=== PATIENT | male | born 1960 ===

== ENCOUNTER 2020-11-05 17:15 | Inpatient (IN) | payer BC, SELFPAY ==
--- NOTE | ~2020-11-05 | CT_ITS ---
EXAMINATION: CT HEAD WITHOUT CONTRAST CLINICAL INFORMATION: Hypertension. COMPARISON: None TECHNIQUE: Contiguous axial imaging was performed from the skull base to vertex without intravenous administration of contrast. This CT examination was performed using dose optimization techniques as appropriate, variously including the following: *Automated exposure control *Adjustment of mA and/or kV according to patient size (this includes techniques or standardized protocols for targeted exams where dose is matched to indication/reason for exam; i.e. extremities or head) *Use of iterative reconstruction technique DLP: 690 mGy-cm FINDINGS: There is no evidence of acute intracranial hemorrhage or territorial infarction. No abnormal mass effect or midline shift is seen. Garcia to white matter differentiation is well preserved. No extra-axial fluid collections are identified. The ventricles are normal in size. There is no abnormal attenuation within the brain parenchyma. The osseous structures and soft tissues are normal. The mastoid air cells and visualized portions of the paranasal sinuses are well aerated. CT/CT head/brain wo con IMPRESSION: No acute intracranial process seen.
--- NOTE | ~2020-11-05 | CT_ITS ---
EXAMINATION: CT ABDOMEN AND PELVIS WITH CONTRAST CLINICAL INFORMATION: 60-year-old male with epigastric pain. COMPARISON: None TECHNIQUE: Multidetector volumetric images were obtained from the superior aspect of the liver through the pubic symphysis following administration 85 mL of Omnipaque 350 intravenous contrast. Sagittal and coronal reformatted images were obtained on the technologist's workstation. Today's examination is limited secondary to motion artifact. This CT examination was performed using dose optimization techniques as appropriate, variously including the following: *Automated exposure control *Adjustment of mA and/or kV according to patient size (this includes techniques or standardized protocols for targeted exams where dose is matched to indication/reason for exam; i.e. extremities or head) *Use of iterative reconstruction technique DLP: 343 mGy-cm FINDINGS: Visualized lung bases demonstrate mild dependent atelectasis. The liver is normal in size but demonstrates diffusely decreased attenuation. A few gallstones are present within an otherwise unremarkable gallbladder. The pancreas, spleen and adrenal glands are unremarkable. Symmetrically enhancing kidneys. There is a 3 cm exophytic cyst off the upper pole the left kidney. No renal calculi or hydronephrosis bilaterally. Visualized portion of the distal esophagus demonstrate mild circumferential mucosal thickening. Normal caliber loops of small and large bowel. Mild colonic diverticulosis without CT evidence to suggest active diverticulitis. Normal appendix. Normal caliber abdominal aorta which demonstrates only mild atherosclerotic disease. No retroperitoneal lymphadenopathy. The bladder is mildly distended but otherwise grossly unremarkable. The prostate gland is not enlarged. No gross free pelvic fluid. No inguinal lymphadenopathy. Small fat-containing left inguinal hernia. Mild diffuse degenerative changes of the spine. CT/CT abdomen pelvis w con IMPRESSION: 1. Today's examination is limited secondary to motion artifact. 2. Diffusely decreased liver attenuation. This is a nonspecific finding but most suggestive of hepatic steatosis. Correlation with liver enzymes recommended. Cholelithiasis. 3. 3 cm left renal cyst. 4. Mild circumferential mucosal thickening noted within visualized portions of the distal esophagus. This is a nonspecific finding. Clinical correlation recommended. 5. Mild colonic diverticulosis without CT evidence to suggest active diverticulitis.
--- NOTE | ~2020-11-05 | XR_ITS ---
EXAMINATION: XR CHEST CLINICAL INFORMATION: Tachycardia and hypertension COMPARISON: Chest 06/01/2017 TECHNIQUE: Frontal view of the chest was obtained. FINDINGS: No significant abnormality is noted involving the heart, lungs, mediastinum, bony thorax or soft tissues. XR/XR chest 1V IMPRESSION: Unremarkable chest exam. No change from 06/01/2017.
[2020-11-05 17:54] VITALS: BP 152/100; PULSE 130; RESP 18; TEMP 36.5; O2SAT 100; BMI 21.3
--- NOTE | 2020-11-05 18:02 | ECG_ITS ---
Test Reason : TACHYCARDIA Blood Pressure : / mmHG Vent. Rate : 133 BPM Atrial Rate : 129 BPM P-R Int : 130 ms QRS Dur : 094 ms QT Int : 366 ms P-R-T Axes : 202 052 200 degrees QTc Int : 544 ms Poor data quality Undetermined rhythm Possible Sinus tachycardia Abnormal ECG When compared with ECG of 17-JUN-2018 14:52, Poor data quality in current ECG precludes serial comparison Please repeat EKG Referred By: Generic ED Physician Electronically Signed By:CHINA BRANDT MD
[2020-11-05] MEDS: Labetalol HCL 100 MG TABLET PO (19:32)
[2020-11-05] MEDS: LORazepam 2 MG/ML VIAL IVPUSH (19:32)
[2020-11-05] MEDS: ondansetron HCL 4 MG/2 ML VIAL IVPUSH (19:35)
--- NOTE | 2020-11-05 19:45 | PC.NURSE ---
NOTIFIED IN DELAY IN LAB WORK DUE TO COMPUTER SYSTEM BEING DOWN.
[2020-11-05 20:00] VITALS: BP 146/78; PULSE 130; RESP 20; TEMP 36.3; O2SAT 98
--- NOTE | 2020-11-05 20:00 | ED_ITS ---
HPI - General Adult General Chief complaint: General Medical Stated complaint: headaches Time Seen by Provider: 11/05/20 19:19 Source: patient Mode of arrival: ambulatory Limitations: no limitations History of Present Illness HPI narrative: patient comes to emergency room complaining of a headache, high blood pressure. patient states that he takes alcohol every day, this morning he only had 1 beer, patient states that he usually takes between 2-6 beers. Patient denies chest pain, no palpitations. Related Data Home Medications Medication Instructions Recorded Confirmed Unobtainable 11/05/20 11/05/20 Allergies Allergy/AdvReac Type Severity Reaction Status Date / Time Sulfa (Sulfonamide Allergy Unknown RASH Unverified 01/25/20 17:10 Antibiotics) Review of Systems Review of Systems: Constitutional : No Weight loss, No Fever, No Chills, No Night Sweats, No Fatigue, No Malaise ENT/Mouth : No Hearing loss, No Ear Pain, No Nasal Congestion, No Sinus Pain, No Hoarseness, No sore throat, No Rhinorrhea, No Swallowing Difficulty Eyes: No Eye Pain, No Swelling, No Redness, No Foreign Body, No Discharge, No Vision Changes Cardiovascular : No Chest Pain, No SOB, No Dyspnea on Exertion, No Orthopnea, No Edema, No Palpitations Respiratory : No Cough, No Sputum, No Wheezing, No Smoke Exposure, No Dyspnea Gastrointestinal : No Nausea, No Vomiting, No Diarrhea, No Constipation, No abdominal Pain, No Hematochezia, No Melena Genitourinary : no irregular bleeding, No Dysuria, No Urinary Frequency, No Hematuria, No Urinary Incontinence, No Urgency, No Flank Pain, No Urinary Flow Changes, No Hesitancy Musculoskeletal : No joint pain, No Myalgias, No Joint Swelling Skin : No Skin Lesions, No rash Neuro : No Weakness, No Numbness, No Paresthesias, No Loss of Consciousness, No Dizziness, No Headache Psych : No Anxiety/Panic, No Depression, No SI/HI/AH/VH, No Social Issues, Heme/Lymph: No Bruising, No Bleeding,No Lymphadenopathy Endocrine : No Polyuria, No Polydipsia, No Temperature Intolerance [facility] Past Medical History Medical History (Updated 11/05/20 @ 22:08 by Gabriela Crane MD) High cholesterol HTN (hypertension) Social History Social History Alcohol intake: current Alcohol intake frequency: 3 or more drinks per day Alcohol type: beer, wine and hard liquor Patient Tobacco Use Status: Current everyday Tobacco user Smoked in Last 30 Days: Yes Use of substances other than those prescribed or required for medical reasons: Unknown Advance Directives: No Advance Directives Information Provided: No Physical Exam Vital Signs: Vital Signs: Last Vital Signs Temp 98.2 F 11/05/20 20:54 Pulse 87 11/05/20 22:20 Resp 16 11/05/20 22:20 BP 131/62 11/05/20 22:20 Pulse Ox 96 11/05/20 22:20 Body Mass Index 21.3 Course Course Course Narrative: Patient seems to be actively withdrawing from alcohol. Patient was started on phenobarb protocol, patient's potassium is 6.0, D50 and insulin was given and Kayexalate as well. No EKG changes. At this time, 950pm, patient is complaining of epigastric pain, given his history of alcohol abuse, will go ahead and scan his abdomen to rule out pancreatitis I discussed the patient with Dr. Saldana, patient is being admitted. Medical Decision Making Lab Data Result diagrams: 11/05/20 19:20 11/05/20 23:16 Labs: Lab Results 11/05/20 11/05/20 11/05/20 Range/Units 19:20 19:20 19:20 WBC 12.9 H (4.8-10.8) X10*3/uL RBC 4.00 L (4.60-5.80) X10*6/uL Hgb 13.8 L (14.0-18.0) g/dl Hct 42.9 (42-52) % MCV 107.3 H (80-98) fL MCH 34.5 H (27.0-33.0) pg MCHC 32.2 (31.0-36.0) g/dl RDW 12.8 (11.0-16.0) % Plt Count 175 (160-400) X10*3/uL MPV 11.5 (9.4-12.4) fL Immature Gran % (Auto) 0.4 (0.0-0.4) % Neut % (Auto) 87.6 H (45-73) % Lymph % (Auto) 5.4 L (20-40) % [place] % (Auto) 6.3 (2-11) % Eos % (Auto) 0.0 (0-4) % Baso % (Auto) 0.3 (0-2) % Lymph # (Auto) 0.7 L (1.2-4.9) X10*3/uL [place] # (Auto) 0.8 (0.1-1.2) X10*3/uL Eos # (Auto) 0.0 (0.0-0.4) X10*3/uL Baso # (Auto) 0.0 (0.0-0.2) X10*3/uL Abs Immat Gran (auto) 0.05 H (0.00-0.03) X10*3/uL Absolute Neuts (auto) 11.3 H (2.0-8.3) X10*3/uL Absolute Nucleated RBC 0.000 (0.0-0.012) X10*3/uL Nucleated RBC % (auto) 0.0 (0.0-0.2) /100WBC Hold Blue Top SEE NOTE Sodium 143 (135-145) mmol/L Potassium 6.0 H* (3.3-5.1) mmol/L Chloride 103 (96-108) mmol/L Carbon Dioxide 12 L (22-29) mmol/L Anion Gap 34 H (12-20) BUN 16 (9-16) mg/dL Creatinine 0.84 (0.5-1.4) mg/dL Estim Creat Clear Calc 78.2 Estimated GFR > 60 POC Glucose (60-115) mg/dL Random Glucose 137 H (60-115) mg/dL Calcium 9.7 (8.4-10.2) mg/dL Magnesium (1.6-2.6) mg/dL Total Bilirubin (0.0-1.0) mg/dL Direct Bilirubin (0.0-0.5) mg/dL AST (5-37) U/L ALT (0-40) U/L Alkaline Phosphatase (39-117) U/L Troponin I High Sens (<3.5-35.0) ng/L Total Protein (6.5-8.0) g/dL Albumin (3.5-5.0) g/dL Lipase (8-78) U/L Ethyl Alcohol mg/dL COVID-19 ([facility]) (Negative) COVID-19 Clin Com 11/05/20 11/05/20 11/05/20 Range/Units 19:20 19:20 19:20 WBC (4.8-10.8) X10*3/uL RBC (4.60-5.80) X10*6/uL Hgb (14.0-18.0) g/dl Hct (42-52) % MCV (80-98) fL MCH (27.0-33.0) pg MCHC (31.0-36.0) g/dl RDW (11.0-16.0) % Plt Count (160-400) X10*3/uL MPV (9.4-12.4) fL Immature Gran % (Auto) (0.0-0.4) % Neut % (Auto) (45-73) % Lymph % (Auto) (20-40) % [place] % (Auto) (2-11) % Eos % (Auto) (0-4) % Baso % (Auto) (0-2) % Lymph # (Auto) (1.2-4.9) X10*3/uL [place] # (Auto) (0.1-1.2) X10*3/uL Eos # (Auto) (0.0-0.4) X10*3/uL Baso # (Auto) (0.0-0.2) X10*3/uL Abs Immat Gran (auto) (0.00-0.03) X10*3/uL Absolute Neuts (auto) (2.0-8.3) X10*3/uL Absolute Nucleated RBC (0.0-0.012) X10*3/uL Nucleated RBC % (auto) (0.0-0.2) /100WBC Hold Blue Top Sodium (135-145) mmol/L Potassium (3.3-5.1) mmol/L Chloride (96-108) mmol/L Carbon Dioxide (22-29) mmol/L Anion Gap (12-20) BUN (9-16) mg/dL Creatinine (0.5-1.4) mg/dL Estim Creat Clear Calc Estimated GFR POC Glucose (60-115) mg/dL Random Glucose (60-115) mg/dL Calcium (8.4-10.2) mg/dL Magnesium (1.6-2.6) mg/dL Total Bilirubin (0.0-1.0) mg/dL Direct Bilirubin (0.0-0.5) mg/dL AST (5-37) U/L ALT (0-40) U/L Alkaline Phosphatase (39-117) U/L Troponin I High Sens 7.1 (<3.5-35.0) ng/L Total Protein (6.5-8.0) g/dL Albumin (3.5-5.0) g/dL Lipase (8-78) U/L Ethyl Alcohol < 10 mg/dL COVID-19 ([facility]) Negative (Negative) COVID-19 Clin Com See Note 11/05/20 11/05/20 11/05/20 Range/Units 22:06 23:16 23:16 WBC (4.8-10.8) X10*3/uL RBC (4.60-5.80) X10*6/uL Hgb (14.0-18.0) g/dl Hct (42-52) % MCV (80-98) fL MCH (27.0-33.0) pg MCHC (31.0-36.0) g/dl RDW (11.0-16.0) % Plt Count (160-400) X10*3/uL MPV (9.4-12.4) fL Immature Gran % (Auto) (0.0-0.4) % Neut % (Auto) (45-73) % Lymph % (Auto) (20-40) % [place] % (Auto) (2-11) % Eos % (Auto) (0-4) % Baso % (Auto) (0-2) % Lymph # (Auto) (1.2-4.9) X10*3/uL [place] # (Auto) (0.1-1.2) X10*3/uL Eos # (Auto) (0.0-0.4) X10*3/uL Baso # (Auto) (0.0-0.2) X10*3/uL Abs Immat Gran (auto) (0.00-0.03) X10*3/uL Absolute Neuts (auto) (2.0-8.3) X10*3/uL Absolute Nucleated RBC (0.0-0.012) X10*3/uL Nucleated RBC % (auto) (0.0-0.2) /100WBC Hold Blue Top Sodium 139 (135-145) mmol/L Potassium 4.3 D (3.3-5.1) mmol/L Chloride 107 (96-108) mmol/L Carbon Dioxide 16 L (22-29) mmol/L Anion Gap 20 (12-20) BUN 14 (9-16) mg/dL Creatinine 0.80 (0.5-1.4) mg/dL Estim Creat Clear Calc 82.1 Estimated GFR > 60 POC Glucose 168 H (60-115) mg/dL Random Glucose 242 H D (60-115) mg/dL Calcium 7.9 L D (8.4-10.2) mg/dL Magnesium 1.5 L (1.6-2.6) mg/dL Total Bilirubin 0.9 (0.0-1.0) mg/dL Direct Bilirubin 0.4 (0.0-0.5) mg/dL AST 82 H (5-37) U/L ALT 48 H (0-40) U/L Alkaline Phosphatase 59 (39-117) U/L Troponin I High Sens 18.1 D (<3.5-35.0) ng/L Total Protein 6.6 (6.5-8.0) g/dL Albumin 3.9 (3.5-5.0) g/dL Lipase 34 (8-78) U/L Ethyl Alcohol mg/dL COVID-19 ([facility]) (Negative) COVID-19 Clin Com Imaging Data CT scan - abdomen: Radiologist's impression: FINDINGS: Visualized lung bases demonstrate mild dependent atelectasis. The liver is normal in size but demonstrates diffusely decreased attenuation. A few gallstones are present within an otherwise unremarkable gallbladder. The pancreas, spleen and adrenal glands are unremarkable. Symmetrically enhancing kidneys. There is a 3 cm exophytic cyst off the upper pole the left kidney. No renal calculi or hydronephrosis bilaterally. Visualized portion of the distal esophagus demonstrate mild circumferential mucosal thickening. Normal caliber loops of small and large bowel. Mild colonic diverticulosis without CT evidence to suggest active diverticulitis. Normal appendix. Normal caliber abdominal aorta which demonstrates only mild atherosclerotic disease. No retroperitoneal lymphadenopathy. The bladder is mildly distended but otherwise grossly unremarkable. The prostate gland is not enlarged. No gross free pelvic fluid. No inguinal lymphadenopathy. Small fat-containing left inguinal hernia. Mild diffuse degenerative changes of the spine. CT/CT abdomen pelvis w con IMPRESSION: 1. Today's examination is limited secondary to motion artifact. 2. Diffusely decreased liver attenuation. This is a nonspecific finding but most suggestive of hepatic steatosis. Correlation with liver enzymes recommended. Cholelithiasis. 3. 3 cm left renal cyst. 4. Mild circumferential mucosal thickening noted within visualized portions of the distal esophagus. This is a nonspecific finding. Clinical correlation recommended. 5. Mild colonic diverticulosis without CT evidence to suggest active diverticulitis. ECG Data Attestation: I personally reviewed and interpreted this ECG as follows: ( Sinus tachycardia, heart rate 131, no ST segment depression or elevation, no T-wave inversion, QTC 425) Discharge Plan Discharge Clinical Impression: Alcohol withdrawal Qualifiers: Complication of substance-induced condition: uncomplicated Qualified Code(s): F10.230 - Alcohol dependence with withdrawal, uncomplicated Patient Disposition: Admitted As Inpatient
--- NOTE | 2020-11-05 20:01 | ECG_ITS ---
Test Reason : REPEAT/TACHY Blood Pressure : / mmHG Vent. Rate : 131 BPM Atrial Rate : 131 BPM P-R Int : 136 ms QRS Dur : 078 ms QT Int : 288 ms P-R-T Axes : 042 029 076 degrees QTc Int : 425 ms Sinus tachycardia Otherwise normal ECG When compared with ECG of 05-NOV-2020 18:14, Poor data quality in prior EKG prevents proper comparison Referred By: Gabriela Crane Electronically Signed By:CHINA BRANDT MD
[2020-11-05 20:12] LABS: MANUAL DIFF FLAG NO
[2020-11-05 20:15] LABS: Basophils Percent Auto 0.3 % (0-2); Hematocrit 42.9 % (42-52); Hemoglobin 13.8 g/dl (14.0-18.0); Imm Gran Abs Auto 0.05 X10*3/uL (0.00-0.03); Imm Gran Pct Auto 0.4 % (0.0-0.4); Lymphocytes Absolute Auto 0.7 X10*3/uL (1.2-4.9); Lymphocytes Percent Auto 5.4 % (20-40); Mean Corpuscular HGB Conc 32.2 g/dl (31.0-36.0); Mean Corpuscular Hemoglobin 34.5 pg (27.0-33.0); Mean Corpuscular Volume 107.3 fL (80-98); Mean Platelet Volume 11.5 fL (9.4-12.4); Monocytes Absolute Auto 0.8 X10*3/uL (0.1-1.2); Monocytes Percent Auto 6.3 % (2-11); Neutrophils Absolute Auto 11.3 X10*3/uL (2.0-8.3); Neutrophils Percent Auto 87.6 % (45-73); Platelet Count 175 X10*3/uL (160-400); Red Cell Distribution Width 12.8 % (11.0-16.0); White Blood Count 12.9 X10*3/uL (4.8-10.8)
[2020-11-05 20:36] LABS: Ethanol < 10 mg/dL
[2020-11-05 20:37] LABS: COVID-19 Test Negative (Negative); IDNOW Serial# 9DD0AD1C
[2020-11-05 20:45] LABS: Troponin-I High Sensitivity 7.1 ng/L (<3.5-35.0)
[2020-11-05 20:54] VITALS: BP 123/74; PULSE 131; RESP 20; TEMP 36.8; O2SAT 100
--- NOTE | 2020-11-05 20:55 | PC.NURSE ---
PRIYANKA MARTÍNEZ AWARE OF PATIENT HIGH HEART RATE .
[2020-11-05 21:08] LABS: Anion Gap 34 (12-20); Blood Urea Nitrogen 16 mg/dL (9-16); Calcium 9.7 mg/dL (8.4-10.2); Carbon Dioxide 12 mmol/L (22-29); Chloride 103 mmol/L (96-108); Creatinine Clr Calc Pharmacy 78.2; Estimated Glomerular Filt Rate > 60; Glucose Random 137 mg/dL (60-115); Sodium 143 mmol/L (135-145)
[2020-11-05] MEDS: Sodium Polystyrene Sulfon/Sorb 15 GM/60 ML ORAL.SUSP 30 GM PO (21:50)
[2020-11-05] MEDS: iohexoL 350 MG/ML 100 ML INFUS..BTL IV (22:00)
[2020-11-05 22:10] LABS: Glucose, Whole Blood 168 mg/dL (60-115)
--- NOTE | 2020-11-05 22:10 | PC.NURSE ---
confirming with provider that patient is to have labs drawn after medication administration. primary rn aware
[2020-11-05] MEDS: 0.9 % Sodium Chloride 1,000 ML 999 ML IVCONT (22:12)
[2020-11-05] MEDS: Insulin Regular, Human 100 UNIT/ML 3 ML VIAL 10 UNIT IVPUSH (22:12)
[2020-11-05] MEDS: PHENobarbitaL sodium 130 MG/ML VIAL 256 MG IM (22:17)
[2020-11-05] MEDS: Thiamine HCL 200 MG in 0.9 % Sodium Chloride 100 ML 204 MG IV (22:19)
[2020-11-05 22:20] VITALS: BP 131/62; PULSE 87; RESP 16; O2SAT 96
[2020-11-05 23:52] LABS: Anion Gap 20 (12-20); Blood Urea Nitrogen 14 mg/dL (9-16); Calcium 7.9 mg/dL (8.4-10.2); Carbon Dioxide 16 mmol/L (22-29); Chloride 107 mmol/L (96-108); Creatinine Clr Calc Pharmacy 82.1; Estimated Glomerular Filt Rate > 60; Glucose Random 242 mg/dL (60-115); Lipase 34 U/L (8-78); Magnesium 1.5 mg/dL (1.6-2.6); Potassium 4.3 mmol/L (3.3-5.1); Sodium 139 mmol/L (135-145); Troponin-I High Sensitivity 18.1 ng/L (<3.5-35.0)
[2020-11-06] VITALS (8 sets, daily range): BP systolic 109–136; BP diastolic 66–80; PULSE 68–104; RESP 18–20; TEMP 36.4–37.2; O2SAT 95–99
[2020-11-06] MEDS: PHENobarbitaL sodium 130 MG/ML VIAL 191 MG IM ×2 (01:01→03:59)
[2020-11-06] MEDS: Heparin Sodium,Porcine 5,000 UNIT/ML VIAL 5000 UNIT SUBCUT ×3 (01:01→22:12)
[2020-11-06 01:37] LABS: Alanine Aminotransferase 48 U/L (0-40); Albumin Level 3.9 g/dL (3.5-5.0); Alkaline Phosphatase 59 U/L (39-117); Aspartate Amino Transferase 82 U/L (5-37); Bilirubin Direct 0.4 mg/dL (0.0-0.5); Bilirubin Total 0.9 mg/dL (0.0-1.0); Total Protein 6.6 g/dL (6.5-8.0)
[2020-11-06 03:34] LABS: Glucose Urine UA >=1000 MG/DL (NEG); Leukocyte Esterase Urine NEG (NEG); Nitrite Urine NEG (NEG); Urine Blood TRACE (NEG); Urine Ketones 40 MG/DL (NEG); Urine Protein NEG (NEG-TRACE)
[2020-11-06 03:36] LABS: Appearance Urine CLEAR; Color Urine YELLOW
--- NOTE | 2020-11-06 03:38 | PC.NURSE ---
REPORT FROM MAURICIO MATHEW AT 03:00
[2020-11-06 03:41] LABS: Bacteria Urine TRACE /LPF; Squamous Epithelial Cell Urine TRACE /LPF
--- NOTE | 2020-11-06 04:14 | PC.NURSE ---
PT AMBULATORY TO BATHROOM, UNSTEADY GAIT WITH ASSIST OF ONE. PT HAD LIQUID BROWN/YELLOW DIARRHEA.
--- NOTE | 2020-11-06 05:50 | P.HPHOSP_ITS ---
History of Present Illness Date of Service: 11/05/20 Chief Complaint: abdominal pain 60-year-old male with past medical history of hypertension, hyperlipidemia, alcohol abuse who presents to the hospital with complaints of abdominal pain. Patient reports the abdominal pain is around the stomach, nonradiating, not associated with any fever or chills, no nausea or vomiting, patient reports using alcohol daily about 4-6 beers a day, last drink was this morning he had 1 beer. Patient reports that he has never had withdrawal symptoms and no withdrawal seizure. Vitals on arrival are significant for temp of 97.7?, heart rate of 130, respiratory rate of 18, blood pressure of 152/100, satting 100% on room air Labs are significant for WBC count of 12.9, hemoglobin of 13.8, magnesium of 1.5, AST of 82, ALT of 48, UA negative. Abdominal CT shows diffusely decreased liver attenuation possibly secondary to hepatic steatosis, renal cyst, mild circumferential mucosal thickening noted within the visualized portion of the distal esophagus. no pancreatitis, lipase negative Unremarkable chest x-ray patient will be admitted for alcohol abuse with withdrawal past medical history as below and confirmed with patient Review of Systems Review of Systems: Yes all other systems are reviewed and are negative [facility] Medical History (Updated 11/06/20 @ 05:55 by Daniel Saldana MD) Alcohol abuse High cholesterol HTN (hypertension) Social History Alcohol intake: current Alcohol intake frequency: 3 or more drinks per day Alcohol type: beer, wine and hard liquor Patient Tobacco Use Status: Current everyday Tobacco user Smoked in Last 30 Days: Yes Use of substances other than those prescribed or required for medical reasons: Unknown Advance Directives: No Advance Directives Information Provided: No Meds Allergies Allergy/AdvReac Type Severity Reaction Status Date / Time Sulfa (Sulfonamide Allergy Unknown RASH Unverified 01/25/20 17:10 Antibiotics) Active Medications: Current Medications Generic Name Dose Route Start Last Admin Trade Name Freq PRN Reason Stop Dose Admin Acetaminophen 650 mg 11/06/20 00:52 Acetaminophen 325 Mg Tablet PO Q6H PRN Pain, Mild (Pain Scale 1-3) Docusate Sodium 100 mg 11/06/20 00:52 Docusate Sodium 100 Mg Capsule PO DAILY PRN Constipation Folic Acid 1 mg 11/06/20 09:00 Folic Acid 1 Mg Tablet PO DAILY [facility] Heparin Sodium (Porcine) 5,000 unit 11/06/20 09:00 Heparin Sodium,Porcine 5,000 Unit/Ml Vial SUBCUT BID [facility] Medication 1 each 11/06/20 09:00 No Benzodiazepines MISCELLANE DAILY [facility] Ondansetron HCl 4 mg 11/06/20 00:52 Ondansetron Hcl 4 Mg/2 Ml Vial IVPUSH Q8H PRN Nausea and Vomiting Phenobarbital 45 mg 11/06/20 09:00 Phenobarbital 15 Mg Tablet PO 11/07/20 21:01 BID [facility] Phenobarbital 15 mg 11/08/20 09:00 Phenobarbital 15 Mg Tablet PO 11/09/20 21:01 BID [facility] Phenobarbital 15 mg 11/10/20 09:00 Phenobarbital 15 Mg Tablet PO 11/11/20 09:01 DAILY [facility] Sodium Chloride 3 ml 11/06/20 08:00 0.9 % Sodium Chloride Flush 3 Ml Syringe IVFLUSH QSHIFT [facility] Thiamine HCl 100 mg 11/06/20 09:00 Thiamine Hcl 100 Mg Tablet PO DAILY [facility] Home Medications Medication Instructions Recorded Confirmed Last Taken Type Unobtainable 11/05/20 11/05/20 Unknown History Physical Exam Vital Signs and Narrative: Vital Signs: Last Vital Signs Temp 98.2 F 11/05/20 20:54 Pulse 104 H 11/06/20 03:23 Resp 19 11/06/20 03:23 BP 120/79 11/06/20 03:23 Pulse Ox 95 11/06/20 03:23 Body Mass Index 21.3 Const: General: cooperative and no acute distress Orientation/consciousness: patient oriented x3 Eyes: General: appearance normal, both eyes and all related structures Resp: Effort & Inspection: normal respiratory effort and able to speak in complete sentences Cardio: Rate: regular rate Rhythm: regular rhythm GI: Palpation (GI): Soft to palpation Auscultation: normal bowel sounds Skin: General skin exam: no rashes or lesions noted Neuro: General: patient oriented x3 Cognition (Neuro): normal cognition Extrem: General: Yes normal to inspection and Yes no pedal edema Results Labs CBC and Chem 7: 11/05/20 19:20 11/05/20 23:16 Labs: Laboratory Results - last 24 hr 11/05/20 11/05/20 11/05/20 19:20 19:20 19:20 MCV 107.3 H MCH 34.5 H MCHC 32.2 RDW 12.8 Plt Count 175 MPV 11.5 Immature Gran % (Auto) 0.4 Neut % (Auto) 87.6 H Lymph % (Auto) 5.4 L White % (Auto) 6.3 Eos % (Auto) 0.0 Baso % (Auto) 0.3 Lymph # (Auto) 0.7 L White # (Auto) 0.8 Eos # (Auto) 0.0 Baso # (Auto) 0.0 Abs Immat Gran (auto) 0.05 H Absolute Neuts (auto) 11.3 H Absolute Nucleated RBC 0.000 Nucleated RBC % (auto) 0.0 Hold Blue Top SEE NOTE Anion Gap 34 H Estim Creat Clear Calc 78.2 Estimated GFR > 60 POC Glucose Random Glucose 137 H Calcium 9.7 Magnesium Total Bilirubin Direct Bilirubin AST ALT Alkaline Phosphatase Troponin I High Sens Total Protein Albumin Lipase Urine Color Urine Appearance Urine pH Ur Specific [place] Urine Protein Urine Glucose (UA) Urine Ketones Urine Blood Urine Nitrite Ur Leukocyte Esterase Urine RBC Urine WBC Ur Squamous Epith Cells Urine Bacteria Ethyl Alcohol COVID-19 (SUBHA) COVID-InfoReach 11/05/20 11/05/20 11/05/20 19:20 19:20 19:20 MCV MCH MCHC RDW Plt Count MPV Immature Gran % (Auto) Neut % (Auto) Lymph % (Auto) White % (Auto) Eos % (Auto) Baso % (Auto) Lymph # (Auto) White # (Auto) Eos # (Auto) Baso # (Auto) Abs Immat Gran (auto) Absolute Neuts (auto) Absolute Nucleated RBC Nucleated RBC % (auto) Hold Blue Top Anion Gap Estim Creat Clear Calc Estimated GFR POC Glucose Random Glucose Calcium Magnesium Total Bilirubin Direct Bilirubin AST ALT Alkaline Phosphatase Troponin I High Sens 7.1 Total Protein Albumin Lipase Urine Color Urine Appearance Urine pH Ur Specific [place] Urine Protein Urine Glucose (UA) Urine Ketones Urine Blood Urine Nitrite Ur Leukocyte Esterase Urine RBC Urine WBC Ur Squamous Epith Cells Urine Bacteria Ethyl Alcohol < 10 COVID-19 (SUBHA) Negative COVID-19 Nosopharm Com See Note 11/05/20 11/05/20 11/05/20 22:06 23:16 23:16 MCV MCH MCHC RDW Plt Count MPV Immature Gran % (Auto) Neut % (Auto) Lymph % (Auto) White % (Auto) Eos % (Auto) Baso % (Auto) Lymph # (Auto) White # (Auto) Eos # (Auto) Baso # (Auto) Abs Immat Gran (auto) Absolute Neuts (auto) Absolute Nucleated RBC Nucleated RBC % (auto) Hold Blue Top Anion Gap 20 Estim Creat Clear Calc 82.1 Estimated GFR > 60 POC Glucose 168 H Random Glucose 242 H D Calcium 7.9 L D Magnesium 1.5 L Total Bilirubin 0.9 Direct Bilirubin 0.4 AST 82 H ALT 48 H Alkaline Phosphatase 59 Troponin I High Sens 18.1 D Total Protein 6.6 Albumin 3.9 Lipase 34 Urine Color Urine Appearance Urine pH Ur Specific [place] Urine Protein Urine Glucose (UA) Urine Ketones Urine Blood Urine Nitrite Ur Leukocyte Esterase Urine RBC Urine WBC Ur Squamous Epith Cells Urine Bacteria Ethyl Alcohol COVID-19 (SUBHA) COVID-19 Nosopharm Com 11/06/20 03:28 MCV MCH MCHC RDW Plt Count MPV Immature Gran % (Auto) Neut % (Auto) Lymph % (Auto) White % (Auto) Eos % (Auto) Baso % (Auto) Lymph # (Auto) White # (Auto) Eos # (Auto) Baso # (Auto) Abs Immat Gran (auto) Absolute Neuts (auto) Absolute Nucleated RBC Nucleated RBC % (auto) Hold Blue Top Anion Gap Estim Creat Clear Calc Estimated GFR POC Glucose Random Glucose Calcium Magnesium Total Bilirubin Direct Bilirubin AST ALT Alkaline Phosphatase Troponin I High Sens Total Protein Albumin Lipase Urine Color YELLOW Urine Appearance CLEAR Urine pH 6.0 Ur Specific [place] 1.020 Urine Protein NEG Urine Glucose (UA) >=1000 H Urine Ketones 40 Urine Blood TRACE Urine Nitrite NEG Ur Leukocyte Esterase NEG Urine RBC 1-4 Urine WBC 1-4 Ur Squamous Epith Cells TRACE Urine Bacteria TRACE Ethyl Alcohol COVID-19 (SUBHA) COVID-19 Clin Com Imaging Radiologist's Impressions: Impressions Chest X-Ray 11/05/20 18:02 IMPRESSION: Unremarkable chest exam. No change from 06/01/2017. Head CT 11/05/20 19:35 IMPRESSION: No acute intracranial process seen. Abdomen/Pelvis CT 11/05/20 21:46 IMPRESSION: 1. Today's examination is limited secondary to motion artifact. 2. Diffusely decreased liver attenuation. This is a nonspecific finding but most suggestive of hepatic steatosis. Correlation with liver enzymes recommended. Cholelithiasis. 3. 3 cm left renal cyst. 4. Mild circumferential mucosal thickening noted within visualized portions of the distal esophagus. This is a nonspecific finding. Clinical correlation recommended. 5. Mild colonic diverticulosis without CT evidence to suggest active diverticulitis. Assessment and Plan (1) Alcohol abuse with withdrawal: Status: Acute (2) Abdominal pain: Status: Acute (3) Transaminitis: Status: Acute 60-year-old male with past medical history of alcohol abuse presents to the hospital with abdominal pain as well as alcohol withdrawal # abdominal pain - no discernible cause - CT abdomen negative - possibly secondary to esophagitis as CT abdomen showed thickening around the lower esophagus - start him on Prilosec 40 b.i.d. - follow symptoms # alcohol abuse with withdrawal - was started on phenobarb protocol by ED physicianas patient was actively withdrawn while in the ED - thiamine and folic acid # history of hypertension? - denies taking any medications - stable - monitor # Transaminitis - secondary to alcohol abuse - mild - follow LFT prior to discharge DVT prophylaxis: heparin subQ Quality Stroke Does the patient have a stroke diagnosis?: No VTE Prior VTE?: No VTE Risk Level:: Medical - moderate - high VTE Device Contraindication: Treatment Not Indicated VTE Drug Contraindication: N/A - Med Ordered
[2020-11-06] MEDS: Omeprazole 40 MG CAPSULE.DR PO ×2 (06:37→17:44)
[2020-11-06] MEDS: 0.9 % Sodium Chloride Flush 3 ML SYRINGE IVFLUSH ×3 (07:10→22:16)
--- NOTE | 2020-11-06 08:09 | PHA.MEDREC ---
Pharmacy Consult ? Medication Reconciliation Pharmacy has completed the medication reconciliation. Patient reports that he takes no medications at home. Report his pharmacy is [facility] in the [facility] where he works. Called pharmacy and there is no filled history Amna Michele, FranD
[2020-11-06] MEDS: Thiamine HCL 100 MG TABLET PO (09:04)
[2020-11-06] MEDS: Folic Acid 1 MG TABLET PO (09:04)
[2020-11-06] MEDS: PHENobarbitaL 15 MG TABLET 45 MG PO ×2 (09:04→22:12)
--- NOTE | 2020-11-06 10:52 | MHC.CM.PN ---
Attempted to meet with patient in regards to discharge planning. Patient currently sleeping. No family present. Will attempt to meet again. Continue to monitor for d/c needs.
[2020-11-07 03:28] VITALS: BP 158/85; PULSE 64; RESP 18; TEMP 36.6; O2SAT 97
[2020-11-07] MEDS: Omeprazole 40 MG CAPSULE.DR PO ×2 (05:47→16:49)
[2020-11-07 06:53] LABS: MANUAL DIFF FLAG NO
[2020-11-07 07:05] LABS: Basophils Percent Auto 0.7 % (0-2); Eosinophils Absolute Auto 0.1 X10*3/uL (0.0-0.4); Hematocrit 35.5 % (42-52); Hemoglobin 12.3 g/dl (14.0-18.0); Imm Gran Abs Auto 0.02 X10*3/uL (0.00-0.03); Imm Gran Pct Auto 0.3 % (0.0-0.4); Lymphocytes Absolute Auto 1.3 X10*3/uL (1.2-4.9); Mean Corpuscular HGB Conc 34.6 g/dl (31.0-36.0); Mean Corpuscular Hemoglobin 34.6 pg (27.0-33.0); Mean Corpuscular Volume 99.7 fL (80-98); Mean Platelet Volume 11.4 fL (9.4-12.4); Monocytes Absolute Auto 0.6 X10*3/uL (0.1-1.2); Monocytes Percent Auto 9.6 % (2-11); Neutrophils Absolute Auto 3.8 X10*3/uL (2.0-8.3); Neutrophils Percent Auto 66.4 % (45-73); Platelet Count 134 X10*3/uL (160-400); Red Blood Count 3.56 X10*6/uL (4.60-5.80); Red Cell Distribution Width 12.1 % (11.0-16.0); White Blood Count 5.7 X10*3/uL (4.8-10.8)
[2020-11-07 07:38] VITALS: BP 145/85; PULSE 70; RESP 17; TEMP 37.6; O2SAT 99
[2020-11-07 07:38] LABS: Anion Gap 12 (12-20); Blood Urea Nitrogen 8 mg/dL (9-16); Calcium 8.1 mg/dL (8.4-10.2); Carbon Dioxide 30 mmol/L (22-29); Chloride 101 mmol/L (96-108); Creatinine Clr Calc Pharmacy 107.6; Estimated Glomerular Filt Rate > 60; Glucose Random 94 mg/dL (60-115); Potassium 3.1 mmol/L (3.3-5.1); Sodium 140 mmol/L (135-145)
[2020-11-07] MEDS: Folic Acid 1 MG TABLET PO (08:33)
[2020-11-07] MEDS: PHENobarbitaL 15 MG TABLET 45 MG PO ×2 (08:33→20:28)
[2020-11-07] MEDS: 0.9 % Sodium Chloride Flush 3 ML SYRINGE IVFLUSH ×3 (08:34→20:28)
[2020-11-07] MEDS: Thiamine HCL 100 MG TABLET PO (08:34)
[2020-11-07] MEDS: Heparin Sodium,Porcine 5,000 UNIT/ML VIAL 5000 UNIT SUBCUT ×2 (08:34→20:28)
[2020-11-07 08:50] LABS: Alanine Aminotransferase 42 U/L (0-40); Albumin Level 3.6 g/dL (3.5-5.0); Alkaline Phosphatase 54 U/L (39-117); Aspartate Amino Transferase 71 U/L (5-37); Bilirubin Direct 0.7 mg/dL (0.0-0.5); Bilirubin Total 1.7 mg/dL (0.0-1.0); Magnesium 1.7 mg/dL (1.6-2.6); Total Protein 5.9 g/dL (6.5-8.0)
[2020-11-07] MEDS: Potassium Chloride Packet 20 MEQ PACKET 40 MEQ PO (09:59)
--- NOTE | 2020-11-07 10:17 | MHC.CM.PN ---
PATIENT LIVES ALONE. HE SUES NO DME OR VNA SERVICES. HE HAS BEEN WORKING AT THE SAME PLACE FOR 19 YEARS AND IS HOPING TO BE ABLE TO RETURN TO WORK BY THIS WEDNESDAY (11/10/20) PATIENT WILL NEED A RETURN TO WORK NOTE, INDICATING THE DAYS HE HAS BEEN HERE. PATIENT SHARED THAT HIS ONLY SON THREE YEARS AGO, AND HIS WHILE WITH HIS DAUGHTER. HE IS AWARE THAT A CARE TEAM CONSULT WILL BE PLACED AND IS AGREEABLE. CASE MANAGEMENT FOLLOWING.
--- NOTE | 2020-11-07 10:59 | HO.PM.IMPN ---
Subjective Subjective Date of Service: 11/07/20 Interval History: seen and examined this AM feels better reports some epigastric pain after vomiting yeterday, but denies chronic pain denies any weight loss or dysphagia ROS General - no fevers or chills Cardiovascular - no chest pain Respiratory - no shortness of breath or cough Abdominal- no abdominal pain, nausea, vomiting, diarrhea Physical Exam Vital Signs: Vital Signs: Last Vital Signs Temp 99.7 F 11/07/20 07:38 Pulse 70 11/07/20 07:38 Resp 17 11/07/20 07:38 BP 145/85 H 11/07/20 07:38 Pulse Ox 99 11/07/20 07:38 Body Mass Index 21.3 Const: Other: General - no acute distress, appears comfortable Cardiovascular - regular rate and rhythm, S1-S2 Lungs - normal respiratory effort, clear to auscultation bilaterally, no wheezing Abdomen - soft, nontender, no rebound or guarding Extremities - no edema bilaterally Neuro - awake and alert, no focal deficits Objective Data Current Medications Generic Name Dose Route Start Last Admin Trade Name Bruceq PRN Reason Stop Dose Admin Acetaminophen 650 mg 11/06/20 00:52 Acetaminophen 325 Mg Tablet PO Q6H PRN Pain, Mild (Pain Scale 1-3) Docusate Sodium 100 mg 11/06/20 00:52 Docusate Sodium 100 Mg Capsule PO DAILY PRN Constipation Folic Acid 1 mg 11/06/20 09:00 11/07/20 08:33 Folic Acid 1 Mg Tablet PO 1 mg DAILY [facility]YAM Administration Heparin Sodium (Porcine) 5,000 unit 11/06/20 09:00 11/07/20 08:34 Heparin Sodium,Porcine 5,000 Unit/Ml Vial SUBCUT 5,000 unit BID PAYAM Administration Magnesium Oxide 400 mg 11/07/20 17:30 Magnesium Oxide 400 Mg Tablet PO [facility] Medication 1 each 11/06/20 09:00 No Benzodiazepines MISCELLANE DAILY [facility] Omeprazole 40 mg 11/06/20 06:30 11/07/20 05:47 Omeprazole 40 Mg Capsule. PO 40 mg BID@0630,1630 PAYAM Administration Ondansetron HCl 4 mg 11/06/20 00:52 Ondansetron Hcl 4 Mg/2 Ml Vial IVPUSH Q8H PRN Nausea and Vomiting Phenobarbital 45 mg 11/06/20 09:00 11/07/20 08:33 Phenobarbital 15 Mg Tablet PO 11/07/20 21:01 45 mg BID PAYAM Administration Phenobarbital 15 mg 11/08/20 09:00 Phenobarbital 15 Mg Tablet PO 11/09/20 21:01 BID [facility]YAM Phenobarbital 15 mg 11/10/20 09:00 Phenobarbital 15 Mg Tablet PO 11/11/20 09:01 DAILY [facility] Sodium Chloride 3 ml 11/06/20 08:00 11/07/20 08:34 0.9 % Sodium Chloride Flush 3 Ml Syringe IVFLUSH 3 ml QSHIFT PAYAM Administration Thiamine HCl 100 mg 11/06/20 09:00 11/07/20 08:34 Thiamine Hcl 100 Mg Tablet PO 100 mg DAILY [facility]YAM Administration Labs CBC & Chem 7: 11/07/20 05:52 11/07/20 05:52 Labs: Laboratory Results - last 24 hr 11/07/20 11/07/20 05:52 05:52 WBC 5.7 RBC 3.56 L Hgb 12.3 L Hct 35.5 L MCV 99.7 H D MCH 34.6 H MCHC 34.6 RDW 12.1 Plt Count 134 L MPV 11.4 Immature Gran % (Auto) 0.3 Neut % (Auto) 66.4 Lymph % (Auto) 22.0 [place] % (Auto) 9.6 Eos % (Auto) 1.0 Baso % (Auto) 0.7 Lymph # (Auto) 1.3 [place] # (Auto) 0.6 Eos # (Auto) 0.1 Baso # (Auto) 0.0 Abs Immat Gran (auto) 0.02 Absolute Neuts (auto) 3.8 Absolute Nucleated RBC 0.000 Nucleated RBC % (auto) 0.0 Sodium 140 Potassium 3.1 L D Chloride 101 Carbon Dioxide 30 H Anion Gap 12 BUN 8 L Creatinine 0.61 Estim Creat Clear Calc 107.6 Estimated GFR > 60 Random Glucose 94 D Calcium 8.1 L Magnesium 1.7 Total Bilirubin 1.7 H Direct Bilirubin 0.7 H AST 71 H ALT 42 H Alkaline Phosphatase 54 Total Protein 5.9 L Albumin 3.6 Quality Stroke Does the patient have a stroke diagnosis?: No VTE Prior VTE?: No VTE Risk Level:: Medical - moderate - high VTE Device Contraindication: Treatment Not Indicated VTE Drug Contraindication: N/A - Med Ordered Assessment and Plan (1) Transaminitis: Status: Acute Assessment and Plan: This is a 60 yo M with no significant PMH (possibly undiagnosed HTN) who presents to the hospital with complaints abdominal pain. He has a personal history of drinking 4-6 beers daily. He was felt to be in alcohol withdrawal upon admission and is admitted for further treatment. 1. Alcohol abuse and dependence presented with elevated BP and tachycardia along with other symptoms suggestive of withdrawal has improved with phenobarb protocol continue pheno, monitor lytes alcohol cessation as been advised to the patient 2. Esophageal abnormality - ? neoplasm noted on CT scan empiric PPI will consult GI to see if endoscopy is indicated 3. HypoK and hypoMg repleted with PO monitor 4. Elevated BP doesnt appear to be on meds at home could be related to withdrawal observe and start antihpyertensives if BP remains elevated after withdrawal component improves 5. Mild transaminitis due to alcohol use downtrending Full Code DVT pptx, subcut. heparin
[2020-11-07 11:26] VITALS: BP 109/74; PULSE 79; RESP 16; TEMP 36.8; O2SAT 99
[2020-11-07 15:20] VITALS: BP 127/88; PULSE 82; RESP 20; TEMP 36.8; O2SAT 98
[2020-11-07] MEDS: Magnesium Oxide 400 MG TABLET PO (16:49)
--- NOTE | 2020-11-07 17:48 | PM.EVENT ---
Event Note Date of Service: 11/07/20 Event Note: GI Consult-Full note dictated-Hx via patient with a medical staff services coordinator and the EMR. Imp: 60 yo male with history of EtOH and some recent vomiting, but without any preceding chronic UGI symptoms. He denies any bleeding, GERD, dysphagia, anorexia. He denies any further N/V nor abdominal pain here. His CT shows some nonspecific changes in the distal esophagus most likely representing some esophagitis as opposed to a neoplasm. Rec: Upper endoscopy with MAC tomorrow, 11/08/2020, by me or Dr. Hernandez. Full consent has been obtained from him for this, including risks of bleeding and perforation. Will hold SQ Heparin and check F/U labs in AM, including a PT/INR. The patient is comfortable with this plan. Thanks.
[2020-11-07 19:51] VITALS: BP 140/90; PULSE 87; RESP 20; TEMP 36.5; O2SAT 99
--- NOTE | 2020-11-07 22:33 | CONS_ITS ---
DATE OF SERVICE: 11/07/2020 REASON FOR CONSULTATION: Abnormal CAT scan of esophagus, elevated LFTs. HISTORY OF PRESENT ILLNESS: History has been obtained from the patient with a medical art therapist, and from the medical record. The patient is a 60-year-old male with a long-standing history of alcohol abuse, who presents with some transient vomiting and epigastric pain. Since admission, this has resolved, and he has had no further vomiting nor abdominal pain. He has been tolerating a diet. He denies any associated hematemesis nor coffee-grounds emesis. He denies any chronic GI complaints such as heartburn, dysphagia, early satiety, nausea, vomiting, nor anorexia. He reports his bowel movements have been fairly regular and without hematochezia nor melena. He denies any abdominal pain otherwise. He has not noticed any jaundice. He denies any weight loss. He does not use any chronic NSAIDs nor aspirin. He does not smoke. He denies ever having had an upper endoscopy. MEDICATIONS: At home were none. His medications here in the hospital include acetaminophen, Colace, folic acid, subcu heparin, magnesium, omeprazole 40 mg p.o. b.i.d., Zofran, phenobarbital, potassium, and thiamine. PAST MEDICAL HISTORY: Alcohol abuse. He denies any surgeries. He denies any medical problems such as heart disease, diabetes, stroke, lung disease, nor kidney disease. SOCIAL HISTORY: He is single. Alcohol abuse. He does not smoke. REVIEW OF SYSTEMS: CONSTITUTIONAL: In general, he has been feeling fairly well, but has been sick recently that prompted his hospitalization. SKIN: No rash. No pruritus. CARDIAC: No chest pain. PULMONARY: No coughing nor hemoptysis. GI: As above. FAMILY HISTORY: Noncontributory. PHYSICAL EXAMINATION: GENERAL: The patient is a pleasant, thin, alert male, but in no distress. SKIN: Warm and dry. HEENT: Anicteric sclerae. CHEST: Clear. CARDIAC: Normal S1 and S2. ABDOMEN: Soft, nondistended, nontender without palpable mass. EXTREMITIES: Without edema. NEUROLOGIC: He seems to be alert and oriented without any asterixis. LABORATORY DATA: White count 5.7, hemoglobin 12.3, platelets 134,000. Sodium 140, potassium 3.1, chloride 101, CO2 30, BUN is 8, creatinine 0.6. Total bilirubin was 0.9 yesterday and 1.7 today with a direct bilirubin of only 0.7. AST 71, ALT 42, alkaline phosphatase 54, albumin 3.6. CAT scan of his abdomen and pelvis revealed some evidence of chronic liver disease and some gallstones, but without any sign of biliary disease, cholecystitis, nor liver mass. The radiologist describes some mild circumferential mucosal thickening in the distal esophagus, which was nonspecific. His pancreas and spleen appeared normal, and there is no description of any significant ascites. IMPRESSION: Given the patient's clinical history, I suspect the CAT scan findings in regard to the esophagus reflect some esophagitis in relation to his recent vomiting as well as from his chronic alcohol use. However, I would recommend upper endoscopy to definitively exclude neoplasm given his risk factors. Full consent has been obtained from him for this, including risks of bleeding and perforation. In the meantime, I will continue his PPI as you are doing. The procedure will be done with monitored anesthesia care and will be done either by myself or Dr. Hernandez. Full consent has been obtained from the patient for the procedure, including risks of bleeding and perforation. Of note, he does have gallstones, and I did advise him of that today. I did advise him that they seem asymptomatic, but if he becomes symptomatic with right upper quadrant pain, then he may need surgical referral at some point. However, I do not think that is currently needed. I have ordered followup laboratories in the morning including a PT with INR, and I have placed his subcu heparin on hold for tonight. The patient is comfortable with this plan. Thank you for this consultation. MD SHEFALI Moy/YOSVANY / [phone]
--- NOTE | 2020-11-07 22:50 | MHC.SHP ---
Pre-Procedural Eval Section A Date of Service: 11/07/20 The patient is an INPATIENT: Yes The History & Physical has been completed within 30 days and I have reviewed it.: Yes Section B Chief Complaint: Abd pain, Alcohol abuse Allergies: Allergies Allergy/AdvReac Type Severity Reaction Status Date / Time Sulfa (Sulfonamide Allergy Unknown RASH Verified 11/06/20 06:36 Antibiotics) Plan I have reviewed the history and physical and performed a pertinent physical examination on my patient. No changes have occurred unless specified.
[2020-11-07 23:38] VITALS: BP 137/67; PULSE 64; RESP 18; TEMP 36.8; O2SAT 98
[2020-11-08 03:45] VITALS: BP 120/75; PULSE 67; RESP 18; TEMP 36.8; O2SAT 97
[2020-11-08 06:07] LABS: Hematocrit 35.4 % (42-52); Hemoglobin 12.3 g/dl (14.0-18.0); Imm Gran Abs Auto 0.02 X10*3/uL (0.00-0.03); Imm Gran Pct Auto 0.5 % (0.0-0.4); MANUAL DIFF FLAG SCAN; Mean Corpuscular HGB Conc 34.7 g/dl (31.0-36.0); PLT CLUMP 1; SCAN SMEAR FLAG 1
[2020-11-08 06:09] LABS: Eosinophils Absolute Auto 0.1 X10*3/uL (0.0-0.4); Eosinophils Percent Auto 2.8 % (0-4); Lymphocytes Percent Auto 25.9 % (20-40); Mean Corpuscular Hemoglobin 34.6 pg (27.0-33.0); Mean Corpuscular Volume 99.4 fL (80-98); Mean Platelet Volume 11.3 fL (9.4-12.4); Monocytes Absolute Auto 0.4 X10*3/uL (0.1-1.2); Monocytes Percent Auto 10.2 % (2-11); Neutrophils Absolute Auto 2.4 X10*3/uL (2.0-8.3); Neutrophils Percent Auto 59.6 % (45-73); Platelet Count 133 X10*3/uL (160-400); Red Blood Count 3.56 X10*6/uL (4.60-5.80); Red Cell Distribution Width 11.9 % (11.0-16.0); White Blood Count 3.9 X10*3/uL (4.8-10.8)
[2020-11-08 06:16] LABS: Prothrombin Time 11.7 SEC (10.8-13.0)
[2020-11-08 06:42] LABS: Alanine Aminotransferase 43 U/L (0-40); Albumin Level 3.6 g/dL (3.5-5.0); Alkaline Phosphatase 57 U/L (39-117); Anion Gap 13 (12-20); Aspartate Amino Transferase 76 U/L (5-37); Bilirubin Direct 0.7 mg/dL (0.0-0.5); Bilirubin Total 1.7 mg/dL (0.0-1.0); Blood Urea Nitrogen 7 mg/dL (9-16); Calcium 8.5 mg/dL (8.4-10.2); Carbon Dioxide 29 mmol/L (22-29); Chloride 101 mmol/L (96-108); Creatinine Clr Calc Pharmacy 111.3; Estimated Glomerular Filt Rate > 60; Glucose Fasting 99 mg/dL (60-99); Potassium 3.3 mmol/L (3.3-5.1); Sodium 140 mmol/L (135-145); Total Protein 6.2 g/dL (6.5-8.0)
[2020-11-08 07:17] VITALS: BP 125/81; PULSE 69; RESP 17; TEMP 36.1; O2SAT 97
[2020-11-08] MEDS: Folic Acid 1 MG TABLET PO (08:26)
[2020-11-08] MEDS: Magnesium Oxide 400 MG TABLET PO (08:26)
[2020-11-08] MEDS: PHENobarbitaL 15 MG TABLET PO (08:26)
[2020-11-08] MEDS: 0.9 % Sodium Chloride Flush 3 ML SYRINGE IVFLUSH (08:27)
[2020-11-08] MEDS: Thiamine HCL 100 MG TABLET PO (08:27)
[2020-11-08 09:34] VITALS: BP 141/99; PULSE 83; RESP 18; TEMP 37.2; O2SAT 98
--- NOTE | 2020-11-08 10:48 | HO.ANESPROP2 ---
[facility], LATER [facility] Active Problems Active Problems: All Active Problems (Updated 11/06/20 @ 05:55 by Daniel Saldana MD) Transaminitis (Acute) Abdominal pain (Acute) Alcohol abuse with withdrawal (Acute) Alcohol withdrawal (Acute) Past Medical History Medical History Alcohol abuse High cholesterol HTN (hypertension) Social History Social History Household Members: None Housing: Apartment Do you presently have visiting nurse or other home services: No Alcohol intake: current Alcohol intake frequency: 3 or more drinks per day Alcohol type: beer, wine and hard liquor Patient Tobacco Use Status: Never used Tobacco Smoked in Last 30 Days: Yes Use of substances other than those prescribed or required for medical reasons: No Currently Displaying Signs/Symptoms of Drug Intoxication Withdrawal: No Have you been hit, kicked, punched, or otherwise hurt by someone within the past year? If so, by whom?: No Do you feel safe in your current relationship?: No Current Relationship Is there a partner from a previous relationship who is making you feel unsafe now?: No Are you made to feel afraid or neglected: No Are you DNR?: No Advance Directives: No Advance Directives Information Provided: No Do you have thoughts of harming others: None Do you have a plan to hurt others: No Plan Recently lost weight without trying: No Eating poorly because of decreased appetite: No service: No Current occupational status: employed Meds Allergies Allergy/AdvReac Type Severity Reaction Status Date / Time Sulfa (Sulfonamide Allergy Unknown RASH Verified 11/06/20 06:36 Antibiotics) Active Medications: Current Medications Generic Name Dose Route Start Last Admin Trade Name Freq PRN Reason Stop Dose Admin Acetaminophen 650 mg 11/06/20 00:52 Acetaminophen 325 Mg Tablet PO Q6H PRN Pain, Mild (Pain Scale 1-3) Docusate Sodium 100 mg 11/06/20 00:52 Docusate Sodium 100 Mg Capsule PO DAILY PRN Constipation Folic Acid 1 mg 11/06/20 09:00 11/08/20 08:26 Folic Acid 1 Mg Tablet PO 1 mg DAILY PAYAM Administration Heparin Sodium (Porcine) 5,000 unit 11/06/20 09:00 11/08/20 08:27 Heparin Sodium,Porcine 5,000 Unit/Ml Vial SUBCUT Not Given BID [facility] Magnesium Oxide 400 mg 11/07/20 17:30 11/08/20 08:26 Magnesium Oxide 400 Mg Tablet PO 400 mg BIDPC PAYAM Administration Medication 1 each 11/06/20 09:00 No Benzodiazepines MISCELLANE DAILY [facility] Omeprazole 40 mg 11/06/20 06:30 11/08/20 05:09 Omeprazole 40 Mg Capsule.Dr PO Not Given BID@0630,1630 [facility] Ondansetron HCl 4 mg 11/06/20 00:52 Ondansetron Hcl 4 Mg/2 Ml Vial IVPUSH Q8H PRN Nausea and Vomiting Phenobarbital 15 mg 11/08/20 09:00 11/08/20 08:26 Phenobarbital 15 Mg Tablet PO 11/09/20 21:01 15 mg BID [facility] Administration Phenobarbital 15 mg 11/10/20 09:00 Phenobarbital 15 Mg Tablet PO 11/11/20 09:01 DAILY [facility] Sodium Chloride 3 ml 11/06/20 08:00 11/08/20 08:27 0.9 % Sodium Chloride Flush 3 Ml Syringe IVFLUSH 3 ml QSHIFT [facility] Administration Thiamine HCl 100 mg 11/06/20 09:00 11/08/20 08:27 Thiamine Hcl 100 Mg Tablet PO 100 mg DAILY PAYAM Administration Home Medications Medication Instructions Recorded Confirmed Last Taken Type No Known Home Meds 11/06/20 11/06/20 Unknown History Exam Exam Date and Time: November 08, 2020 1048 Height,Weight and Vital Signs: Height 5 ft 6 in Weight 59.874 kg Last Vital Signs Temp 99.0 F 11/08/20 09:34 Pulse 83 11/08/20 09:34 Resp 18 11/08/20 09:34 BP 141/99 H 11/08/20 09:34 Pulse Ox 98 11/08/20 09:34 Pertinent Lab Results Pertinent Lab Results: Laboratory Tests 11/05/20 11/05/20 11/05/20 19:20 19:20 19:20 WBC 12.9 H RBC 4.00 L Hgb 13.8 L Hct 42.9 MCV 107.3 H MCH 34.5 H MCHC 32.2 RDW 12.8 Plt Count 175 MPV 11.5 Immature Gran % (Auto) 0.4 Neut % (Auto) 87.6 H Lymph % (Auto) 5.4 L [place] % (Auto) 6.3 Eos % (Auto) 0.0 Baso % (Auto) 0.3 Lymph # (Auto) 0.7 L [place] # (Auto) 0.8 Eos # (Auto) 0.0 Baso # (Auto) 0.0 Abs Immat Gran (auto) 0.05 H Absolute Neuts (auto) 11.3 H Absolute Nucleated RBC 0.000 Nucleated RBC % (auto) 0.0 Smear Tech's Comments PT INR Hold Blue Top SEE NOTE Sodium 143 Potassium 6.0 H* Chloride 103 Carbon Dioxide 12 L Anion Gap 34 H BUN 16 Creatinine 0.84 Estim Creat Clear Calc 78.2 Estimated GFR > 60 POC Glucose Random Glucose 137 H Fasting Glucose Calcium 9.7 Magnesium Total Bilirubin Direct Bilirubin AST ALT Alkaline Phosphatase Troponin I High Sens Total Protein Albumin Lipase Urine Color Urine Appearance Urine pH Ur Specific [place] Urine Protein Urine Glucose (UA) Urine Ketones Urine Blood Urine Nitrite Ur Leukocyte Esterase Urine RBC Urine WBC Ur Squamous Epith Cells Urine Bacteria Ethyl Alcohol COVID-19 (SUBHA) COVID-sougou 11/05/20 11/05/20 11/05/20 19:20 19:20 19:20 WBC RBC Hgb Hct MCV MCH MCHC RDW Plt Count MPV Immature Gran % (Auto) Neut % (Auto) Lymph % (Auto) [place] % (Auto) Eos % (Auto) Baso % (Auto) Lymph # (Auto) [place] # (Auto) Eos # (Auto) Baso # (Auto) Abs Immat Gran (auto) Absolute Neuts (auto) Absolute Nucleated RBC Nucleated RBC % (auto) Smear Tech's Comments PT INR Hold Blue Top Sodium Potassium Chloride Carbon Dioxide Anion Gap BUN Creatinine Estim Creat Clear Calc Estimated GFR POC Glucose Random Glucose Fasting Glucose Calcium Magnesium Total Bilirubin Direct Bilirubin AST ALT Alkaline Phosphatase Troponin I High Sens 7.1 Total Protein Albumin Lipase Urine Color Urine Appearance Urine pH Ur Specific [place] Urine Protein Urine Glucose (UA) Urine Ketones Urine Blood Urine Nitrite Ur Leukocyte Esterase Urine RBC Urine WBC Ur Squamous Epith Cells Urine Bacteria Ethyl Alcohol < 10 COVID-19 (SUBHA) Negative [employer] See Note 11/05/20 11/05/20 11/05/20 22:06 23:16 23:16 WBC RBC Hgb Hct MCV MCH MCHC RDW Plt Count MPV Immature Gran % (Auto) Neut % (Auto) Lymph % (Auto) [place] % (Auto) Eos % (Auto) Baso % (Auto) Lymph # (Auto) [place] # (Auto) Eos # (Auto) Baso # (Auto) Abs Immat Gran (auto) Absolute Neuts (auto) Absolute Nucleated RBC Nucleated RBC % (auto) Smear Tech's Comments PT INR Hold Blue Top Sodium 139 Potassium 4.3 D Chloride 107 Carbon Dioxide 16 L Anion Gap 20 BUN 14 Creatinine 0.80 Estim Creat Clear Calc 82.1 Estimated GFR > 60 POC Glucose 168 H Random Glucose 242 H D Fasting Glucose Calcium 7.9 L D Magnesium 1.5 L Total Bilirubin 0.9 Direct Bilirubin 0.4 AST 82 H ALT 48 H Alkaline Phosphatase 59 Troponin I High Sens 18.1 D Total Protein 6.6 Albumin 3.9 Lipase 34 Urine Color Urine Appearance Urine pH Ur Specific [place] Urine Protein Urine Glucose (UA) Urine Ketones Urine Blood Urine Nitrite Ur Leukocyte Esterase Urine RBC Urine WBC Ur Squamous Epith Cells Urine Bacteria Ethyl Alcohol COVID-19 (SUBHA) COVID-19 Clin Com 11/06/20 11/07/20 11/07/20 03:28 05:52 05:52 WBC 5.7 RBC 3.56 L Hgb 12.3 L Hct 35.5 L MCV 99.7 H D MCH 34.6 H MCHC 34.6 RDW 12.1 Plt Count 134 L MPV 11.4 Immature Gran % (Auto) 0.3 Neut % (Auto) 66.4 Lymph % (Auto) 22.0 [place] % (Auto) 9.6 Eos % (Auto) 1.0 Baso % (Auto) 0.7 Lymph # (Auto) 1.3 [place] # (Auto) 0.6 Eos # (Auto) 0.1 Baso # (Auto) 0.0 Abs Immat Gran (auto) 0.02 Absolute Neuts (auto) 3.8 Absolute Nucleated RBC 0.000 Nucleated RBC % (auto) 0.0 Smear Tech's Comments PT INR Hold Blue Top Sodium 140 Potassium 3.1 L D Chloride 101 Carbon Dioxide 30 H Anion Gap 12 BUN 8 L Creatinine 0.61 Estim Creat Clear Calc 107.6 Estimated GFR > 60 POC Glucose Random Glucose 94 D Fasting Glucose Calcium 8.1 L Magnesium 1.7 Total Bilirubin 1.7 H Direct Bilirubin 0.7 H AST 71 H ALT 42 H Alkaline Phosphatase 54 Troponin I High Sens Total Protein 5.9 L Albumin 3.6 Lipase Urine Color YELLOW Urine Appearance CLEAR Urine pH 6.0 Ur Specific [place] 1.020 Urine Protein NEG Urine Glucose (UA) >=1000 H Urine Ketones 40 Urine Blood TRACE Urine Nitrite NEG Ur Leukocyte Esterase NEG Urine RBC 1-4 Urine WBC 1-4 Ur Squamous Epith Cells TRACE Urine Bacteria TRACE Ethyl Alcohol COVID-19 ([facility]) COVID-19 Clin Com 11/08/20 11/08/20 11/08/20 05:33 05:33 05:33 WBC 3.9 L RBC 3.56 L Hgb 12.3 L Hct 35.4 L MCV 99.4 H MCH 34.6 H MCHC 34.7 RDW 11.9 Plt Count 133 L MPV 11.3 Immature Gran % (Auto) 0.5 H Neut % (Auto) 59.6 Lymph % (Auto) 25.9 [place] % (Auto) 10.2 Eos % (Auto) 2.8 Baso % (Auto) 1.0 Lymph # (Auto) 1.0 L [place] # (Auto) 0.4 Eos # (Auto) 0.1 Baso # (Auto) 0.0 Abs Immat Gran (auto) 0.02 Absolute Neuts (auto) 2.4 Absolute Nucleated RBC 0.000 Nucleated RBC % (auto) 0.0 Smear Tech's Comments Not Reportable PT 11.7 INR 1.0 Hold Blue Top Sodium 140 Potassium 3.3 Chloride 101 Carbon Dioxide 29 Anion Gap 13 BUN 7 L Creatinine 0.59 Estim Creat Clear Calc 111.3 Estimated GFR > 60 POC Glucose Random Glucose Fasting Glucose 99 Calcium 8.5 Magnesium Total Bilirubin 1.7 H Direct Bilirubin 0.7 H AST 76 H ALT 43 H Alkaline Phosphatase 57 Troponin I High Sens Total Protein 6.2 L Albumin 3.6 Lipase Urine Color Urine Appearance Urine pH Ur Specific [place] Urine Protein Urine Glucose (UA) Urine Ketones Urine Blood Urine Nitrite Ur Leukocyte Esterase Urine RBC Urine WBC Ur Squamous Epith Cells Urine Bacteria Ethyl Alcohol COVID-19 (SUBHA) COVID-19 Clin Com
--- NOTE | 2020-11-08 11:10 | MHC.SHP ---
Pre-Procedural Eval Section A Date of Service: 11/08/20 The patient is an INPATIENT: Yes Changes since office visit: No Cold of Flu in the past 2 weeks, No New Medical Problems, No Changes in Medication and No Patient answered all questions The History & Physical has been completed within 30 days and I have reviewed it.: Yes Section B Chief Complaint: Abd pain, Alcohol abuse Allergies: Allergies Allergy/AdvReac Type Severity Reaction Status Date / Time Sulfa (Sulfonamide Allergy Unknown RASH Verified 11/06/20 06:36 Antibiotics) Plan I have reviewed the history and physical and performed a pertinent physical examination on my patient. No changes have occurred unless specified.
--- NOTE | 2020-11-08 11:17 | MHC.CM.PN ---
CM ATTEMPTED TO MEET W/PT WHO HAD ALREADY LEFT UNIT FOR EGD, PER HOSPITALIST PT MAY D/C TODAY DEPENDANT ON EGD RESULTS. D/C PLAN: HOME SELF-CARE, PT WILL NEED RETURN TO WORK NOTE, PT TO ARRANGE TRANSPORT.
--- NOTE | 2020-11-08 11:29 | HO.ANESPROP2 ---
[facility] Active Problems Active Problems: All Active Problems (Updated 11/06/20 @ 05:55 by Daniel Saldana MD) Transaminitis (Acute) Abdominal pain (Acute) Alcohol abuse with withdrawal (Acute) Alcohol withdrawal (Acute) Past Medical History Medical History Alcohol abuse High cholesterol HTN (hypertension) Social History Social History Household Members: None Housing: Apartment Do you presently have visiting nurse or other home services: No Alcohol intake: current Alcohol intake frequency: 3 or more drinks per day Alcohol type: beer, wine and hard liquor Patient Tobacco Use Status: Never used Tobacco Smoked in Last 30 Days: Yes Use of substances other than those prescribed or required for medical reasons: No Currently Displaying Signs/Symptoms of Drug Intoxication Withdrawal: No Have you been hit, kicked, punched, or otherwise hurt by someone within the past year? If so, by whom?: No Do you feel safe in your current relationship?: No Current Relationship Is there a partner from a previous relationship who is making you feel unsafe now?: No Are you made to feel afraid or neglected: No Are you DNR?: No Advance Directives: No Advance Directives Information Provided: No Do you have thoughts of harming others: None Do you have a plan to hurt others: No Plan Recently lost weight without trying: No Eating poorly because of decreased appetite: No service: No Current occupational status: employed Meds Allergies Allergy/AdvReac Type Severity Reaction Status Date / Time Sulfa (Sulfonamide Allergy Unknown RASH Verified 11/06/20 06:36 Antibiotics) Active Medications: Current Medications Generic Name Dose Route Start Last Admin Trade Name Freq PRN Reason Stop Dose Admin Acetaminophen 650 mg 11/06/20 00:52 Acetaminophen 325 Mg Tablet PO Q6H PRN Pain, Mild (Pain Scale 1-3) Docusate Sodium 100 mg 11/06/20 00:52 Docusate Sodium 100 Mg Capsule PO DAILY PRN Constipation Folic Acid 1 mg 11/06/20 09:00 11/08/20 08:26 Folic Acid 1 Mg Tablet PO 1 mg DAILY PAYAM Administration Heparin Sodium (Porcine) 5,000 unit 11/06/20 09:00 11/08/20 08:27 Heparin Sodium,Porcine 5,000 Unit/Ml Vial SUBCUT Not Given BID [facility] Magnesium Oxide 400 mg 11/07/20 17:30 11/08/20 08:26 Magnesium Oxide 400 Mg Tablet PO 400 mg BIDPC PAYAM Administration Medication 1 each 11/06/20 09:00 No Benzodiazepines MISCELLANE DAILY [facility] Omeprazole 40 mg 11/06/20 06:30 11/08/20 05:09 Omeprazole 40 Mg Capsule.Dr PO Not Given BID@0630,1630 [facility] Ondansetron HCl 4 mg 11/06/20 00:52 Ondansetron Hcl 4 Mg/2 Ml Vial IVPUSH Q8H PRN Nausea and Vomiting Phenobarbital 15 mg 11/08/20 09:00 11/08/20 08:26 Phenobarbital 15 Mg Tablet PO 11/09/20 21:01 15 mg BID [facility] Administration Phenobarbital 15 mg 11/10/20 09:00 Phenobarbital 15 Mg Tablet PO 11/11/20 09:01 DAILY [facility] Sodium Chloride 3 ml 11/06/20 08:00 11/08/20 08:27 0.9 % Sodium Chloride Flush 3 Ml Syringe IVFLUSH 3 ml QSHIFT [facility] Administration Thiamine HCl 100 mg 11/06/20 09:00 11/08/20 08:27 Thiamine Hcl 100 Mg Tablet PO 100 mg DAILY PAYAM Administration Home Medications Medication Instructions Recorded Confirmed Last Taken Type No Known Home Meds 11/06/20 11/06/20 Unknown History Exam Exam Date and Time: November 08, 2020 1129 Height,Weight and Vital Signs: Height 5 ft 6 in Weight 59.874 kg Last Vital Signs Temp 99.0 F 11/08/20 09:34 Pulse 83 11/08/20 09:34 Resp 18 11/08/20 09:34 BP 141/99 H 11/08/20 09:34 Pulse Ox 98 11/08/20 09:34 Pertinent Lab Results Pertinent Lab Results: Laboratory Tests 11/05/20 11/05/20 11/05/20 19:20 19:20 19:20 WBC 12.9 H RBC 4.00 L Hgb 13.8 L Hct 42.9 MCV 107.3 H MCH 34.5 H MCHC 32.2 RDW 12.8 Plt Count 175 MPV 11.5 Immature Gran % (Auto) 0.4 Neut % (Auto) 87.6 H Lymph % (Auto) 5.4 L [place] % (Auto) 6.3 Eos % (Auto) 0.0 Baso % (Auto) 0.3 Lymph # (Auto) 0.7 L [place] # (Auto) 0.8 Eos # (Auto) 0.0 Baso # (Auto) 0.0 Abs Immat Gran (auto) 0.05 H Absolute Neuts (auto) 11.3 H Absolute Nucleated RBC 0.000 Nucleated RBC % (auto) 0.0 Smear Tech's Comments PT INR Hold Blue Top SEE NOTE Sodium 143 Potassium 6.0 H* Chloride 103 Carbon Dioxide 12 L Anion Gap 34 H BUN 16 Creatinine 0.84 Estim Creat Clear Calc 78.2 Estimated GFR > 60 POC Glucose Random Glucose 137 H Fasting Glucose Calcium 9.7 Magnesium Total Bilirubin Direct Bilirubin AST ALT Alkaline Phosphatase Troponin I High Sens Total Protein Albumin Lipase Urine Color Urine Appearance Urine pH Ur Specific [place] Urine Protein Urine Glucose (UA) Urine Ketones Urine Blood Urine Nitrite Ur Leukocyte Esterase Urine RBC Urine WBC Ur Squamous Epith Cells Urine Bacteria Ethyl Alcohol COVID-19 ([facility]) COVID-[employer] 11/05/20 11/05/20 11/05/20 19:20 19:20 19:20 WBC RBC Hgb Hct MCV MCH MCHC RDW Plt Count MPV Immature Gran % (Auto) Neut % (Auto) Lymph % (Auto) [place] % (Auto) Eos % (Auto) Baso % (Auto) Lymph # (Auto) [place] # (Auto) Eos # (Auto) Baso # (Auto) Abs Immat Gran (auto) Absolute Neuts (auto) Absolute Nucleated RBC Nucleated RBC % (auto) Smear Tech's Comments PT INR Hold Blue Top Sodium Potassium Chloride Carbon Dioxide Anion Gap BUN Creatinine Estim Creat Clear Calc Estimated GFR POC Glucose Random Glucose Fasting Glucose Calcium Magnesium Total Bilirubin Direct Bilirubin AST ALT Alkaline Phosphatase Troponin I High Sens 7.1 Total Protein Albumin Lipase Urine Color Urine Appearance Urine pH Ur Specific [place] Urine Protein Urine Glucose (UA) Urine Ketones Urine Blood Urine Nitrite Ur Leukocyte Esterase Urine RBC Urine WBC Ur Squamous Epith Cells Urine Bacteria Ethyl Alcohol < 10 COVID-19 (SUBHA) Negative [employer] See Note 11/05/20 11/05/20 11/05/20 22:06 23:16 23:16 WBC RBC Hgb Hct MCV MCH MCHC RDW Plt Count MPV Immature Gran % (Auto) Neut % (Auto) Lymph % (Auto) [place] % (Auto) Eos % (Auto) Baso % (Auto) Lymph # (Auto) [place] # (Auto) Eos # (Auto) Baso # (Auto) Abs Immat Gran (auto) Absolute Neuts (auto) Absolute Nucleated RBC Nucleated RBC % (auto) Smear Tech's Comments PT INR Hold Blue Top Sodium 139 Potassium 4.3 D Chloride 107 Carbon Dioxide 16 L Anion Gap 20 BUN 14 Creatinine 0.80 Estim Creat Clear Calc 82.1 Estimated GFR > 60 POC Glucose 168 H Random Glucose 242 H D Fasting Glucose Calcium 7.9 L D Magnesium 1.5 L Total Bilirubin 0.9 Direct Bilirubin 0.4 AST 82 H ALT 48 H Alkaline Phosphatase 59 Troponin I High Sens 18.1 D Total Protein 6.6 Albumin 3.9 Lipase 34 Urine Color Urine Appearance Urine pH Ur Specific [place] Urine Protein Urine Glucose (UA) Urine Ketones Urine Blood Urine Nitrite Ur Leukocyte Esterase Urine RBC Urine WBC Ur Squamous Epith Cells Urine Bacteria Ethyl Alcohol COVID-19 ([facility]) COVID-19 Clin Com 11/06/20 11/07/20 11/07/20 03:28 05:52 05:52 WBC 5.7 RBC 3.56 L Hgb 12.3 L Hct 35.5 L MCV 99.7 H D MCH 34.6 H MCHC 34.6 RDW 12.1 Plt Count 134 L MPV 11.4 Immature Gran % (Auto) 0.3 Neut % (Auto) 66.4 Lymph % (Auto) 22.0 [place] % (Auto) 9.6 Eos % (Auto) 1.0 Baso % (Auto) 0.7 Lymph # (Auto) 1.3 [place] # (Auto) 0.6 Eos # (Auto) 0.1 Baso # (Auto) 0.0 Abs Immat Gran (auto) 0.02 Absolute Neuts (auto) 3.8 Absolute Nucleated RBC 0.000 Nucleated RBC % (auto) 0.0 Smear Tech's Comments PT INR Hold Blue Top Sodium 140 Potassium 3.1 L D Chloride 101 Carbon Dioxide 30 H Anion Gap 12 BUN 8 L Creatinine 0.61 Estim Creat Clear Calc 107.6 Estimated GFR > 60 POC Glucose Random Glucose 94 D Fasting Glucose Calcium 8.1 L Magnesium 1.7 Total Bilirubin 1.7 H Direct Bilirubin 0.7 H AST 71 H ALT 42 H Alkaline Phosphatase 54 Troponin I High Sens Total Protein 5.9 L Albumin 3.6 Lipase Urine Color YELLOW Urine Appearance CLEAR Urine pH 6.0 Ur Specific [place] 1.020 Urine Protein NEG Urine Glucose (UA) >=1000 H Urine Ketones 40 Urine Blood TRACE Urine Nitrite NEG Ur Leukocyte Esterase NEG Urine RBC 1-4 Urine WBC 1-4 Ur Squamous Epith Cells TRACE Urine Bacteria TRACE Ethyl Alcohol COVID-19 ([facility]) COVID-19 Clin Com 11/08/20 11/08/20 11/08/20 05:33 05:33 05:33 WBC 3.9 L RBC 3.56 L Hgb 12.3 L Hct 35.4 L MCV 99.4 H MCH 34.6 H MCHC 34.7 RDW 11.9 Plt Count 133 L MPV 11.3 Immature Gran % (Auto) 0.5 H Neut % (Auto) 59.6 Lymph % (Auto) 25.9 [place] % (Auto) 10.2 Eos % (Auto) 2.8 Baso % (Auto) 1.0 Lymph # (Auto) 1.0 L [place] # (Auto) 0.4 Eos # (Auto) 0.1 Baso # (Auto) 0.0 Abs Immat Gran (auto) 0.02 Absolute Neuts (auto) 2.4 Absolute Nucleated RBC 0.000 Nucleated RBC % (auto) 0.0 Smear Tech's Comments Not Reportable PT 11.7 INR 1.0 Hold Blue Top Sodium 140 Potassium 3.3 Chloride 101 Carbon Dioxide 29 Anion Gap 13 BUN 7 L Creatinine 0.59 Estim Creat Clear Calc 111.3 Estimated GFR > 60 POC Glucose Random Glucose Fasting Glucose 99 Calcium 8.5 Magnesium Total Bilirubin 1.7 H Direct Bilirubin 0.7 H AST 76 H ALT 43 H Alkaline Phosphatase 57 Troponin I High Sens Total Protein 6.2 L Albumin 3.6 Lipase Urine Color Urine Appearance Urine pH Ur Specific [place] Urine Protein Urine Glucose (UA) Urine Ketones Urine Blood Urine Nitrite Ur Leukocyte Esterase Urine RBC Urine WBC Ur Squamous Epith Cells Urine Bacteria Ethyl Alcohol COVID-19 ([facility]) COVID-19 Clin Com
[2020-11-08 11:35] VITALS: BP 102/80; PULSE 102; RESP 16; TEMP 36.2; O2SAT 99
--- NOTE | 2020-11-08 11:37 | P.BOP_ITS ---
Brief Operative Note Date of Service: 11/08/20 Pre-op diagnosis: abnormal ct Post-op diagnosis: same (hiatal hernia) Surgeon: Fredrick Hernandez Anesthesia: MAC Was an Merchandise Flow Team Leader used for this Procedure?: No Estimated blood loss (mL): 0 Pathology: none sent Condition: stable Disposition: PACU
--- NOTE | 2020-11-08 11:38 | PM.EVENT ---
Event Note Date of Service: 11/08/20 Event Note: EGD note dictated Small hiatal hernia no bleeding, esophagitis, or gastritis rec continue ppi x 8 weeks avoid alcohol advance diet f/u prn
[2020-11-08 11:50] VITALS: BP 117/75; PULSE 76; RESP 16; O2SAT 99
[2020-11-08 12:00] VITALS: BP 134/80; PULSE 84; RESP 19; TEMP 36.3; O2SAT 99
--- NOTE | 2020-11-08 12:10 | OP_ITS ---
SURGEON: Fredrick Hernandez MD INDICATIONS: Abnormal CT scan of the esophagus. PREOPERATIVE DIAGNOSIS: POSTOPERATIVE DIAGNOSIS: PROCEDURE PERFORMED: Upper endoscopy. ESTIMATED BLOOD LOSS: COMPLICATIONS: ANESTHESIA: ASSISTANTS: SPECIMENS: MEDICATIONS: Monitored anesthesia care. DESCRIPTION OF PROCEDURE: History and physical performed. The risks and benefits of the procedure were explained to the patient. Informed consent was obtained. The patient was placed in the left lateral decubitus position. The Olympus video gastroscope was introduced into the esophagus, stomach, and duodenum. Examination was performed and the scope was removed. He tolerated the procedure well and was taken to recovery area in stable condition. FINDINGS: Esophagus: The esophagus was normal. There was no esophagitis. There was no mass. There was a small 2 to 3 cm hiatal hernia. Stomach: The stomach showed no evidence of masses, ulcers, or polyps. Duodenum: The bulb and second portion were normal. IMPRESSION: Hiatal hernia. RECOMMENDATIONS: 1. Advanced diet. 2. Avoid alcohol. 3. Omeprazole 40 mg daily for 8 weeks, then discontinue. MD TAINA Muniz/MODL / [id number]
--- NOTE | 2020-11-08 12:11 | P.DS_ITS ---
DS: Providers Provider Date of Service: 11/08/20 Date of admission: 11/06/20 00:16 Primary care physician: Jerry Kothari MD Consults: 11/07/20 07:45 Consult to Care Team Routine Comment: Reason for consultation: etoh 11/07/20 09:33 Consult to Gastroenterology Routine Consulting Provider: Brandon Selby Reason for consultation: esophageal thickening on imaging; etoh abuse Has provider been notified: No DS: Diagnosis Discharge Diagnosis (1) Transaminitis: Status: Acute (2) Alcohol abuse with withdrawal: Status: Acute DS: Medications Discharge Medications Home Medications: Home Medications Medication Instructions Recorded Confirmed No Known Home Meds 11/06/20 11/06/20 DS: Summary Hospital Course Hospital Course: from H&P on day of admission 60-year-old male with past medical history of hypertension, hyperlipidemia, alcohol abuse who presents to the hospital with complaints of abdominal pain. Patient reports the abdominal pain is around the stomach, nonradiating, not associated with any fever or chills, no nausea or vomiting, patient reports using alcohol daily about 4-6 beers a day, last drink was this morning he had 1 beer. Patient reports that he has never had withdrawal symptoms and no withdrawal seizure. Vitals on arrival are significant for temp of 97.7?, heart rate of 130, respiratory rate of 18, blood pressure of 152/100, satting 100% on room air Labs are significant for WBC count of 12.9, hemoglobin of 13.8, magnesium of 1.5, AST of 82, ALT of 48, UA negative. Abdominal CT shows diffusely decreased liver attenuation possibly secondary to hepatic steatosis, renal cyst, mild circumferential mucosal thickening noted within the visualized portion of the distal esophagus. no pancreatitis, lipase negative Unremarkable chest x-ray patient will be admitted for alcohol abuse with withdrawal Alcohol abuse and dependence presented with elevated BP and tachycardia along with other symptoms suggestive of withdrawal has improved with phenobarb protocol alcohol cessation as been advised to the patient Esophageal abnormality - ? neoplasm. noted on CT scan. was seen in consultation by Gastroenterology who recommended EGD. Patient underwent EGD 11/08 in found to have small hiatal hernia, no evidence of esophagitis or gastritis. Recommend 8 weeks of oral PPI and complete cessation of alcohol. Mild transaminitis. Remained stable. Likely related to daily use. Follow up Outpatient with PCP. Time Spent with Patient Time attestation: Total time spent providing and/or coordinating discharge services: Discharge coordination time: Greater than 30 minutes Quality: Stroke Does the patient have a stroke diagnosis?: No Physical Exam Vital Signs: Vital Signs: Last Vital Signs Temp 97.2 F 11/08/20 11:35 Pulse 76 11/08/20 11:50 Resp 16 11/08/20 11:50 BP 117/75 11/08/20 11:50 Pulse Ox 99 11/08/20 11:50 Body Mass Index 21.3 Const: Nutritional Appearance: well nourished Orientation/consciousness: patient oriented x3 HENMT: Head: Yes normocephalic and Yes atraumatic Eyes: Sclerae: sclerae normal Resp: Effort & Inspection: normal respiratory effort and no respiratory distre ss Cardio: Rate: regular rate Rhythm: regular rhythm GI: Palpation (GI): Soft to palpation and nontender Neuro: General: patient oriented x3 Cranial nerves: Yes CN's II-XII intact bilaterally and Yes Bilaterally intact EOM present DS: Data Data Completed and Pending Labs on day of discharge: Laboratory Results - last 24 hr 11/08/20 11/08/20 11/08/20 05:33 05:33 05:33 WBC 3.9 L RBC 3.56 L Hgb 12.3 L Hct 35.4 L MCV 99.4 H MCH 34.6 H MCHC 34.7 RDW 11.9 Plt Count 133 L MPV 11.3 Immature Gran % (Auto) 0.5 H Neut % (Auto) 59.6 Lymph % (Auto) 25.9 [place] % (Auto) 10.2 Eos % (Auto) 2.8 Baso % (Auto) 1.0 Lymph # (Auto) 1.0 L [place] # (Auto) 0.4 Eos # (Auto) 0.1 Baso # (Auto) 0.0 Abs Immat Gran (auto) 0.02 Absolute Neuts (auto) 2.4 Absolute Nucleated RBC 0.000 Nucleated RBC % (auto) 0.0 Smear Tech's Comments Not Reportable PT 11.7 INR 1.0 Sodium 140 Potassium 3.3 Chloride 101 Carbon Dioxide 29 Anion Gap 13 BUN 7 L Creatinine 0.59 Estim Creat Clear Calc 111.3 Estimated GFR > 60 Fasting Glucose 99 Calcium 8.5 Total Bilirubin 1.7 H Direct Bilirubin 0.7 H AST 76 H ALT 43 H Alkaline Phosphatase 57 Total Protein 6.2 L Albumin 3.6 Discharge Plan Discharge Patient Disposition: Home, Self-Care Discharge Diagnosis: Hiatal hernia Alcohol use disorder Referrals: Jerry Kothari MD [Primary Care Provider] - 1 Week Discharge Medications: New omeprazole 20 mg capsule,delayed release(DR/EC) 20 mg PO DAILY 56 Days Qty: 56 RF: 0 No Action No Known Home Meds RF: 0 Activity on Discharge: As tolerated Stand Alone Forms: Patient Portal Discharge page Care Plan Goals: see below Health Concerns: alcohol use Hiatal hernia Elevated LFTs Plan of Treatment: recommend complete abstinence from alcohol you have been started a medication called omeprazole. Please take as prescribed for 8 weeks. elevated liver enzymes. Likely related to alcohol use. Recommend outpatient follow-up PCP Assessment: see discharge summary
--- NOTE | 2020-11-08 12:44 | HO.POSTANES ---
Post Anesthesia Evaluation Post Anesthesia Evaluation Vital Signs: Vital Signs Temp Pulse Resp BP Pulse Ox 11/08/20 12:00 97.4 F 84 19 134/80 99 11/08/20 11:50 76 16 117/75 99 11/08/20 11:35 97.2 F 102 H 16 102/80 99 11/08/20 09:34 99.0 F 83 18 141/99 H 98 11/08/20 07:17 97.0 F 69 17 125/81 97 11/08/20 03:45 98.2 F 67 18 120/75 97 Anesthesia: Monitored Mental Status: Awake Pain Control: Satisfactory Nausea/Vomiting: None Hydration: Adequate Anesthesia-Related Issues: No Anes. Related Issues
--- NOTE | 2020-11-08 13:02 | MHC.CM.PN ---
PT DISCHARGING HOME SELF-CARE, PT TO ARRANGE TRANSPORT.
--- NOTE | 2020-11-08 13:20 | MHC.RECOVSUP ---
Recovery Support note: Patient is a 60 year old Sinhala speaking male who presented to [facility] [place] due to vomiting and headache. Patient was medically admitted. This personal lines underwriter met with patient in room 384 with an [facility] [place] interpreter for the deaf to discuss his substance use and treatment options. Patient reports he drinks up to six beers however states he does not drink everyday. Patient reports he has tried cutting back but finds it difficult due to grief he is experiencing. Patient reports he has lost his parents and his while . Discussed with patient how drinking doesn't fix the grief and patient acknowledged. Patient reports he has never had a problem with his drinking and that it doesn't prevent him from attending to his work and responsibilities. Patient states he went for a long walk after drinking and he believes the sun and heat affected him in a way that prompted his emergency room visit and subsequent hospitalization. Explained to patient that the alcohol will take more of a toll on his body as he gets older and patient acknowledged. Discussed [facility] [place] with patient and informed him of the support groups in [place]. Provided patient with information on this support. This personal lines underwriter discussed medications for alcohol use disorder with patient and provided him information for the [facility] if he would like additional information or if he would like to get started on a medication. Patient reports using no other substances other than alcohol.
== END 2020-11-08 13:50 | disposition home or self-care (01) | DRG 775 ==
LOC: HO.ED 22:08 → HO.EDOVER 11-06 01:04 → HO.S3 11-06 15:45
PROVIDERS: Internal Medicine; Internal Medicine Gastroenterology; Admitting Provider Internal Medicine; Emergency Provider Emergency Medicine; PCP Internal Medicine; Visit Provider Family Medicine
PROC: 0DJ08ZZ Inspection of Upper Intestinal Tract, Via Natural or Artificial Opening Endoscopic (ICD-10-PCS; CPT 43235; principal; 2020-11-08 10:10)
DX: F10.239 Alcohol dependence with withdrawal, unspecified (principal); E83.42 Hypomagnesemia; E78.5 Hyperlipidemia, unspecified; E87.6 Hypokalemia; R74.01 Elevation of levels of liver transaminase levels; Z20.822 Contact with and (suspected) exposure to COVID-19; Z88.2 Allergy status to sulfonamides; Z79.899 Other long term (current) drug therapy
CPT/HCPCS: 43235; 36415; 70450; 71045; 74177; 80048; 80076; 81001; 82077; 82947; 83690; 83735; 84484; 85025; 85610; 87635; 93005; 99218; 99285; J2060; J2405; J2560; J3411; Q9967

== ENCOUNTER 2021-01-24 08:10 | Emergency (ER) | payer MEDICAID, SELFPAY ==
--- NOTE | ~2021-01-24 | CT_ITS ---
EXAMINATION: CT HEAD WITHOUT CONTRAST CLINICAL INFORMATION: Elevated blood pressure COMPARISON: CT head from 11/05/2020 TECHNIQUE: Contiguous axial imaging was performed from the skull base to vertex without intravenous administration of contrast. This CT examination was performed using dose optimization techniques as appropriate, variously including the following: *Automated exposure control *Adjustment of mA and/or kV according to patient size (this includes techniques or standardized protocols for targeted exams where dose is matched to indication/reason for exam; i.e. extremities or head) *Use of iterative reconstruction technique DLP: 703.90 mGy-cm FINDINGS: There is no evidence of acute intracranial hemorrhage or territorial infarction. No abnormal mass effect or midline shift is seen. Garcia to white matter differentiation is well preserved. No extra-axial fluid collections are identified. The ventricles are normal in size. There is no abnormal attenuation within the brain parenchyma. The osseous structures and soft tissues are normal. The mastoid air cells and visualized portions of the paranasal sinuses are well aerated. CT/CT head/brain wo con IMPRESSION: No acute intracranial pathology.
--- NOTE | ~2021-01-24 | US_ITS ---
EXAMINATION: US SCROTUM CLINICAL INFORMATION: Testicular pain, question torsion, question epididymitis. COMPARISON: None TECHNIQUE: A sonogram of the scrotum was performed assessing etienne-scale appearance and color Doppler flow. Spectral Doppler analysis of the arterial and venous flow were performed in the testes bilaterally. FINDINGS: RIGHT: Right testicle measures 4.4 x 2.6 x 3.1 cm, volume 18.4 mL. No focal testicular parenchymal lesions are visualized. Spectral Doppler analysis of the arterial and venous flow is normal in the right testis. Right epididymal head is normal in size. Suggestion of increased vascularity at the level of the right epididymal tail. No right hydrocele or varicocele is seen. LEFT: Left testicle measures 4.5 x 2.6 x 2.8 cm, volume 17.1 mL. No focal testicular parenchymal lesions are visualized. Spectral Doppler analysis of the arterial and venous flow is normal in the left testis. Left epididymal head is normal in size. No left hydrocele or varicocele is seen. Left epididymal Doppler flow is normal. US/US scrotum IMPRESSION: 1. Bilateral testicular vascular flow identified. 2. Suggestion of increased vascularity at the level of the right epididymal tail which may represent epididymitis in the appropriate clinical setting.
--- NOTE | ~2021-01-24 | US_ITS ---
EXAMINATION: US SCROTUM CLINICAL INFORMATION: Testicular pain, question torsion, question epididymitis. COMPARISON: None TECHNIQUE: A sonogram of the scrotum was performed assessing etienne-scale appearance and color Doppler flow. Spectral Doppler analysis of the arterial and venous flow were performed in the testes bilaterally. FINDINGS: RIGHT: Right testicle measures 4.4 x 2.6 x 3.1 cm, volume 18.4 mL. No focal testicular parenchymal lesions are visualized. Spectral Doppler analysis of the arterial and venous flow is normal in the right testis. Right epididymal head is normal in size. Suggestion of increased vascularity at the level of the right epididymal tail. No right hydrocele or varicocele is seen. LEFT: Left testicle measures 4.5 x 2.6 x 2.8 cm, volume 17.1 mL. No focal testicular parenchymal lesions are visualized. Spectral Doppler analysis of the arterial and venous flow is normal in the left testis. Left epididymal head is normal in size. No left hydrocele or varicocele is seen. Left epididymal Doppler flow is normal. US/US scrotum doppler IMPRESSION: 1. Bilateral testicular vascular flow identified. 2. Suggestion of increased vascularity at the level of the right epididymal tail which may represent epididymitis in the appropriate clinical setting.
--- NOTE | ~2021-01-24 | CT_ITS ---
EXAMINATION: CT ABDOMEN AND PELVIS WITHOUT AND WITH CONTRAST CLINICAL INFORMATION: Blood in urine COMPARISON: CT abdomen from 11/05/2020 TECHNIQUE: Multidetector volumetric imaging was performed of the abdomen and pelvis before and after the IV administration of 100 mL of Omnipaque 300 intravenous contrast. Sagittal and coronal reformatted images were obtained on the technologist's workstation. This CT examination was performed using dose optimization techniques as appropriate, variously including the following: *Automated exposure control *Adjustment of mA and/or kV according to patient size (this includes techniques or standardized protocols for targeted exams where dose is matched to indication/reason for exam; i.e. extremities or head) *Use of iterative reconstruction technique DLP: 365.45 mGy-cm FINDINGS: LUNG BASES: The heart is not enlarged. No pericardial effusion. LIVER, GALLBLADDER, AND BILIARY TREE: The liver is normal in size and shape. Decreased hepatic attenuation suggesting hepatic steatosis. No focal hepatic lesion or biliary ductal dilatation is present. Dependent radiopaque calcifications in the intraluminal gallbladder without wall thickening or pericholecystic fluid to suggest cholecystitis. PANCREAS: Unremarkable SPLEEN: Unremarkable ADRENAL GLANDS: Unremarkable KIDNEYS AND URETERS: Exophytic hypodensity along the peripheral aspect of the left renal interpolar region demonstrating fluid attenuation physically representing a cyst measuring up to 2.8 cm. The kidneys are normal in size, shape, and attenuation. No hydronephrosis, hydroureter, or calculi seen. No perinephric stranding. BLADDER: Suggestion of urinary bladder wall thickening. GASTROINTESTINAL TRACT: Mild colonic diverticulosis without acute diverticulitis. The small and large bowel are unremarkable. The appendix is unremarkable. ABDOMINAL WALL: No significant hernia is appreciated. Small fat filled inguinal hernia. LYMPH NODES: No enlarged lymph nodes per size criteria. VASCULAR: Abdominal aorta is nonaneurysmal. Atherosclerotic calcifications of the abdominal aorta and its branches. PELVIC VISCERA: The prostate is not enlarged. OSSEOUS STRUCTURES: Osteopenia. Multilevel degenerative changes of the thoracolumbar spine. Left-sided L5 pars defect. CT/CT abdomen pelvis wo/w con IMPRESSION: 1. No acute process of the abdomen or pelvis identified. 2. Decreased hepatic attenuation suggesting hepatic steatosis. 3. Cholelithiasis without acute cholecystitis. 4. Exophytic hypodensity along the left renal interpolar/upper pole region demonstrating fluid attenuation statistically representing a cyst. 5. Bladder wall thickening suggesting an element of bladder outlet obstruction. 6. Colonic diverticulosis without acute diverticulitis. 7. Small fat filled left inguinal hernia. 8. Osteopenia.
--- NOTE | 2021-01-24 08:13 | PC.NURSE ---
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
[2021-01-24 08:23] VITALS: BP 193/113; PULSE 95; RESP 19; TEMP 36.6; O2SAT 99; BMI 20.6
--- NOTE | 2021-01-24 08:39 | ECG_ITS ---
Test Reason : HIGH BP Blood Pressure : / mmHG Vent. Rate : 084 BPM Atrial Rate : 084 BPM P-R Int : 122 ms QRS Dur : 082 ms QT Int : 374 ms P-R-T Axes : 060 031 068 degrees QTc Int : 441 ms Normal sinus rhythm Normal ECG When compared with ECG of 05-NOV-2020 20:16, Vent. rate has decreased BY 47 BPM Referred By: Del Saldana Electronically Signed By:CORNELL RAMOS
[2021-01-24 08:49] LABS: MANUAL DIFF FLAG NO
[2021-01-24 08:50] VITALS: BP 190/110; PULSE 103
[2021-01-24 08:50] LABS: Basophils Absolute Auto 0.1 X10*3/uL (0.0-0.2); Basophils Percent Auto 1.5 % (0-2); Eosinophils Absolute Auto 0.1 X10*3/uL (0.0-0.4); Eosinophils Percent Auto 3.9 % (0-4); Hematocrit 42.6 % (42-52); Hemoglobin 14.4 g/dl (14.0-18.0); Imm Gran Abs Auto 0.01 X10*3/uL (0.00-0.03); Imm Gran Pct Auto 0.3 % (0.0-0.4); Lymphocytes Absolute Auto 1.2 X10*3/uL (1.2-4.9); Mean Corpuscular HGB Conc 33.8 g/dl (31.0-36.0); Mean Corpuscular Hemoglobin 33.3 pg (27.0-33.0); Mean Corpuscular Volume 98.4 fL (80-98); Mean Platelet Volume 10.5 fL (9.4-12.4); Monocytes Absolute Auto 0.5 X10*3/uL (0.1-1.2); Monocytes Percent Auto 15.7 % (2-11); Neutrophils Absolute Auto 1.5 X10*3/uL (2.0-8.3); Neutrophils Percent Auto 43.6 % (45-73); Platelet Count 170 X10*3/uL (160-400); Red Blood Count 4.33 X10*6/uL (4.60-5.80); Red Cell Distribution Width 11.8 % (11.0-16.0); White Blood Count 3.4 X10*3/uL (4.8-10.8)
[2021-01-24] MEDS: cloNIDine HCL 0.2 MG TABLET PO (08:50)
[2021-01-24 08:58] LABS: INTERNATIONAL NORM RATIO 0.9 (0.9-1.1); Prothrombin Time 10.3 SEC (9.9-13.0)
[2021-01-24 09:01] LABS: Partial Thromboplastin Time 28.9 SEC (24.1-38.0)
--- NOTE | 2021-01-24 09:11 | ED.GENADULT ---
HPI - General Adult General Chief complaint: General Medical Stated complaint: hbp, urinating blood Time Seen by Provider: 01/24/21 08:39 Source: patient Mode of arrival: ambulatory Limitations: no limitations History of Present Illness HPI narrative: Patient presents to ED for multiple complaints. Patient's 1st complaint is 4 days ago after masturbating he ejaculated and there were blood in his sperm. Patient then states nose couple days after he had some blood in his urine. Patient states last episode of blood in his urine was yesterday. Patient states mild testicular pain. states yesterday he had mild dysuria with drops of blood. Denies gross hematuria. Patient states today no abdominal pain, hematuria, flank pain, fever, chills, or dysuria. Patient has secondary complaint that he feels like his blood pressure is high. Patient states face feels flushed with slight headache. If he has not taken his blood pressure medication over 5 years. Patient denies any chest pain, shortness of breath, dizziness, slurred speech, loss of vision, or process of extremities. Related Data Previous Rx's Medication Instructions Recorded omeprazole 20 mg capsule,delayed 20 mg PO DAILY 56 Days #56 cap 11/08/20 release amlodipine 5 mg tablet 5 mg PO DAILY #14 tab 01/24/21 levofloxacin 500 mg tablet 500 mg PO DAILY 10 Days #10 tab 01/24/21 Allergies Allergy/AdvReac Type Severity Reaction Status Date / Time Sulfa (Sulfonamide Allergy Unknown RASH Verified 11/20/20 12:09 Antibiotics) Review of Systems Review of Systems: Yes all other systems are reviewed and are negative Constitutional: Constitutional: Reports as per HPI, Reports no additional constitutional complaints and Reports headache(s) Comments: Face flushed Eyes: Eyes: Reports as per HPI and Reports no additional eye complaints ENT: Reports system reviewed and no additional complaints, except as documented, Reports as per HPI and Reports headache(s) Cardiovascular: Cardiovascular: Reports as per HPI and Reports no additional cardiovascular complaints Respiratory: Respiratory: Reports as per HPI and Reports no additional respiratory complaints Gastrointestinal: Gastrointestinal: Reports as per HPI and Reports no additional gastrointestinal complaints Genitourinary: Genitourinary: Reports no additional male genitourinary complaints, Reports as per HPI, Reports hematuria and Reports testicular pain Comments: Resolved blood in sperm. Musculoskeletal: Musculoskeletal: Reports no additional musculoskeletal complaints and Reports as per HPI Neurologic: Reports system reviewed and no additional complaints, except as documented, Reports as per HPI and Reports headache(s) Psychiatric: Psychiatric: Reports no additional psychiatric complaints and Reports as per HPI [facility] Past Medical History Medical History (Updated 01/24/21 @ 14:05 by ANUEL Oropeza) Alcohol abuse Elevated blood pressure reading Hiatal hernia High cholesterol HTN (hypertension) Surgical History No significant past surgical history Family History Family History Father Lung cancer Mother Cancer Other Substance abuse Social History Social History Household Members: None Housing: Apartment Do you presently have visiting nurse or other home services: No Alcohol intake: current Alcohol intake frequency: a few times a week Alcohol type: beer, wine and hard liquor Patient Tobacco Use Status: Never used Tobacco Second Hand Smoke Exposure: Yes Advance Directives: No Advance Directives Information Provided: No service: No Current occupational status: employed Current occupation: maintenance Physical Exam Vital Signs: Vital Signs: Last Vital Signs Temp 98 F 01/24/21 08:23 Pulse 71 01/24/21 14:33 Resp 16 01/24/21 14:33 BP 106/70 01/24/21 14:33 Pulse Ox 99 01/24/21 11:25 Body Mass Index 20.6 Const: General: cooperative, healthy appearing, comfortable, no acute distress, well developed, alert, awake and Physically active Orientation/consciousness: patient oriented x3 HENMT: Head: Yes normal to inspection, Yes No palpable skull fracture present, Yes normocephalic and Yes atraumatic Eyes: General: appearance normal, both eyes and all related structures Neck: Neck: Yes normal visual inspection, Yes full ROM, Yes no lymphadenopathy, Yes no meningeal signs, Yes trachea midline, Yes supple and No tender Chest: Chest palpation & inspection: normal inspection of the chest and normal palpation of entire chest wall Resp: Effort & Inspection: normal respiratory effort and able to speak in complete sentences Auscultation: clear to auscultation bilaterally Cardio: Jugular venous distension: no JVD Heart sounds: S1 normal heart sound present and S2 normal heart sound present GI: Inspection: Yes normal to inspection and No abdominal wall ecchymosis Palpation (GI): Soft to palpation, not firm, nontender, no guarding and not rigid : Other: Negative for any blood at urethral meatus. Negative for ecchymosis or signs of trauma of penis and testicles. Negative for penile lesions. Negative for penile discharge. Negative for testicular swelling or redness. Positive for mild testicular tenderness. General: No CVA tenderness and Yes no CVA tenderness Male General Exam: No Genital lesions present Penis: normal penis, uncircumcised, no ecchymosis, not edematous, not erythematous, no masses, no vesicles, no swelling and No Genital lesions present Meatus: meatus normal Scrotum: scrotum normal Back/Spine/Pelvis: Back: no CVA tenderness, No CVA tenderness and No back tenderness Skin: General skin exam: no rashes or lesions noted and elasticity normal Neuro: Other: Negative slurred speech. Negative facial droop. All extremities equal strength 5+. [id number] rapid hand movement intact. Negative pronator drift. Negative Romberg General: patient oriented x3, no meningeal signs and CN's II-XI intact bilaterally Cranial nerves: Yes CN's II-XII intact bilaterally Course Course Course Narrative: Patient has multiple complaints. Will do head CT scan to make sure there is no stroke or bleed. Negative for any neuro deficits. Given clonidine for blood pressure. Patient states history of alcohol abuse 6 beers per day but presently negative for any tremors and states had drink we last night. Patient is not in any alcohol withdrawal. troponin ordered due to elevated blood pressure. Patient will have abdominal CT scan with and without contrast to evaluate for prostate CA versus kidney stones. Patient also states for testicular ultrasound. Reevaluation(s) Reevaluation #1: Patient's 2 troponins came back negative. Blood pressure improved with clonidine. Abdominal CT scan pain negative for kidney stones or any prostate/bladder malignancy. Ultrasound of testicles shows epididymitis. Patient states he has not been sexually active with anyone for 6 years. Will treat for E coli induced epididymis. EKG negative for STEMI. Pressure improved clone the Time: 01:47 Medical Decision Making MDM Narrative Medical decision making narrative: Epididymitis. Hypertension. Lab Data Result diagrams: 01/24/21 08:44 01/24/21 08:44 Labs: Lab Results 01/24/21 01/24/21 01/24/21 Range/Units 08:44 08:44 08:44 WBC 3.4 L (4.8-10.8) X10*3/uL RBC 4.33 L D (4.60-5.80) X10*6/uL Hgb 14.4 (14.0-18.0) g/dl Hct 42.6 D (42-52) % MCV 98.4 H (80-98) fL MCH 33.3 H (27.0-33.0) pg MCHC 33.8 (31.0-36.0) g/dl RDW 11.8 (11.0-16.0) % Plt Count 170 D (160-400) X10*3/uL MPV 10.5 (9.4-12.4) fL Immature Gran % (Auto) 0.3 (0.0-0.4) % Neut % (Auto) 43.6 L (45-73) % Lymph % (Auto) 35.0 (20-40) % [place] % (Auto) 15.7 H (2-11) % Eos % (Auto) 3.9 (0-4) % Baso % (Auto) 1.5 (0-2) % Lymph # (Auto) 1.2 (1.2-4.9) X10*3/uL [place] # (Auto) 0.5 (0.1-1.2) X10*3/uL Eos # (Auto) 0.1 (0.0-0.4) X10*3/uL Baso # (Auto) 0.1 (0.0-0.2) X10*3/uL Abs Immat Gran (auto) 0.01 (0.00-0.03) X10*3/uL Absolute Neuts (auto) 1.5 L (2.0-8.3) X10*3/uL Absolute Nucleated RBC 0.000 (0.0-0.012) X10*3/uL Nucleated RBC % (auto) 0.0 (0.0-0.2) /100WBC PT 10.3 (9.9-13.0) SEC INR 0.9 (0.9-1.1) APTT 28.9 (24.1-38.0) SEC Sodium 139 (135-145) mmol/L Potassium 4.1 D (3.3-5.1) mmol/L Chloride 102 (96-108) mmol/L Carbon Dioxide 25 (22-29) mmol/L Anion Gap 16 (12-20) BUN 7 L (9-16) mg/dL Creatinine 0.66 (0.5-1.4) mg/dL Estim Creat Clear Calc 95.3 Estimated GFR > 60 Random Glucose 99 (60-115) mg/dL Calcium 9.4 D (8.4-10.2) mg/dL Total Bilirubin 0.9 (0.0-1.0) mg/dL AST 92 H (5-37) U/L ALT 54 H (0-40) U/L Alkaline Phosphatase 66 (39-117) U/L Troponin I High Sens (<3.5-35.0) ng/L Total Protein 7.5 D (6.5-8.0) g/dL Albumin 4.4 D (3.5-5.0) g/dL Urine Color Urine Appearance Urine pH (5.0-8.0) Ur Specific [place] (1.005-1.025) Urine Protein (NEG-TRACE) MG/DL Urine Glucose (UA) (NEG) MG/DL Urine Ketones (NEG) MG/DL Urine Blood (NEG) Urine Nitrite (NEG) Ur Leukocyte Esterase (NEG) Urine RBC (0) /HPF Urine WBC (0-4) /HPF Ur Squamous Epith Cells /LPF Urine Bacteria /LPF Chlam trachomat DNA PCR (Not Detect.) N.gonorrhoeae DNA (PCR) (Not Detect.) 01/24/21 01/24/21 01/24/21 Range/Units 08:44 10:54 10:54 WBC (4.8-10.8) X10*3/uL RBC (4.60-5.80) X10*6/uL Hgb (14.0-18.0) g/dl Hct (42-52) % MCV (80-98) fL MCH (27.0-33.0) pg MCHC (31.0-36.0) g/dl RDW (11.0-16.0) % Plt Count (160-400) X10*3/uL MPV (9.4-12.4) fL Immature Gran % (Auto) (0.0-0.4) % Neut % (Auto) (45-73) % Lymph % (Auto) (20-40) % [place] % (Auto) (2-11) % Eos % (Auto) (0-4) % Baso % (Auto) (0-2) % Lymph # (Auto) (1.2-4.9) X10*3/uL [place] # (Auto) (0.1-1.2) X10*3/uL Eos # (Auto) (0.0-0.4) X10*3/uL Baso # (Auto) (0.0-0.2) X10*3/uL Abs Immat Gran (auto) (0.00-0.03) X10*3/uL Absolute Neuts (auto) (2.0-8.3) X10*3/uL Absolute Nucleated RBC (0.0-0.012) X10*3/uL Nucleated RBC % (auto) (0.0-0.2) /100WBC PT (9.9-13.0) SEC INR (0.9-1.1) APTT (24.1-38.0) SEC Sodium (135-145) mmol/L Potassium (3.3-5.1) mmol/L Chloride (96-108) mmol/L Carbon Dioxide (22-29) mmol/L Anion Gap (12-20) BUN (9-16) mg/dL Creatinine (0.5-1.4) mg/dL Estim Creat Clear Calc Estimated GFR Random Glucose (60-115) mg/dL Calcium (8.4-10.2) mg/dL Total Bilirubin (0.0-1.0) mg/dL AST (5-37) U/L ALT (0-40) U/L Alkaline Phosphatase (39-117) U/L Troponin I High Sens < 3.5 D (<3.5-35.0) ng/L Total Protein (6.5-8.0) g/dL Albumin (3.5-5.0) g/dL Urine Color YELLOW Urine Appearance CLEAR Urine pH 5.5 (5.0-8.0) Ur Specific [place] 1.020 (1.005-1.025) Urine Protein NEG (NEG-TRACE) MG/DL Urine Glucose (UA) NEG (NEG) MG/DL Urine Ketones 5 (NEG) MG/DL Urine Blood 2+ H (NEG) Urine Nitrite NEG (NEG) Ur Leukocyte Esterase NEG (NEG) Urine RBC 30-49 H (0) /HPF Urine WBC 0 (0-4) /HPF Ur Squamous Epith Cells TRACE /LPF Urine Bacteria NONE /LPF Chlam trachomat DNA PCR NOT DETECTED (Not Detect.) N.gonorrhoeae DNA (PCR) NOT DETECTED (Not Detect.) 01/24/21 Range/Units 12:02 WBC (4.8-10.8) X10*3/uL RBC (4.60-5.80) X10*6/uL Hgb (14.0-18.0) g/dl Hct (42-52) % MCV (80-98) fL MCH (27.0-33.0) pg MCHC (31.0-36.0) g/dl RDW (11.0-16.0) % Plt Count (160-400) X10*3/uL MPV (9.4-12.4) fL Immature Gran % (Auto) (0.0-0.4) % Neut % (Auto) (45-73) % Lymph % (Auto) (20-40) % [place] % (Auto) (2-11) % Eos % (Auto) (0-4) % Baso % (Auto) (0-2) % Lymph # (Auto) (1.2-4.9) X10*3/uL [place] # (Auto) (0.1-1.2) X10*3/uL Eos # (Auto) (0.0-0.4) X10*3/uL Baso # (Auto) (0.0-0.2) X10*3/uL Abs Immat Gran (auto) (0.00-0.03) X10*3/uL Absolute Neuts (auto) (2.0-8.3) X10*3/uL Absolute Nucleated RBC (0.0-0.012) X10*3/uL Nucleated RBC % (auto) (0.0-0.2) /100WBC PT (9.9-13.0) SEC INR (0.9-1.1) APTT (24.1-38.0) SEC Sodium (135-145) mmol/L Potassium (3.3-5.1) mmol/L Chloride (96-108) mmol/L Carbon Dioxide (22-29) mmol/L Anion Gap (12-20) BUN (9-16) mg/dL Creatinine (0.5-1.4) mg/dL Estim Creat Clear Calc Estimated GFR Random Glucose (60-115) mg/dL Calcium (8.4-10.2) mg/dL Total Bilirubin (0.0-1.0) mg/dL AST (5-37) U/L ALT (0-40) U/L Alkaline Phosphatase (39-117) U/L Troponin I High Sens < 3.5 (<3.5-35.0) ng/L Total Protein (6.5-8.0) g/dL Albumin (3.5-5.0) g/dL Urine Color Urine Appearance Urine pH (5.0-8.0) Ur Specific [place] (1.005-1.025) Urine Protein (NEG-TRACE) MG/DL Urine Glucose (UA) (NEG) MG/DL Urine Ketones (NEG) MG/DL Urine Blood (NEG) Urine Nitrite (NEG) Ur Leukocyte Esterase (NEG) Urine RBC (0) /HPF Urine WBC (0-4) /HPF Ur Squamous Epith Cells /LPF Urine Bacteria /LPF Chlam trachomat DNA PCR (Not Detect.) N.gonorrhoeae DNA (PCR) (Not Detect.) ECG Data Interpretation: Normal sinus rhythm. Normal EKG particular 84. Pr interval 122. QRS 82. QTC 441. Negative STEMI Discharge Plan Discharge Clinical Impression: Hypertension, Acute epididymitis, Hematospermia, Hematuria Patient Disposition: Home, Self-Care Instructions: Epididymitis (ED), Hematuria (ED), Hypertension (ED) Additional Instructions: Hinton electrocardiograma y an?lisis de everardo del coraz?n resultaron negativos para un ataque card?aco. [place]inton tomograf?a computarizada de la mary jo result? negativa para accidente cerebrovascular o hemorragia cerebral. [place] ecograf?a testicular muestra epididimitis. Se le laila? de reinaldo con antibi?ticos y tambi?n con UE con medicaci?n para la presi?n arterial para hinton presi?n arterial reinaldo. Claudia un seguimiento con hinton proveedor de atenci?n primaria. Regrese al servicio de urgencias por cualquier dificultad para hablar, p?rdida de la visi?n, declive facial, par?lisis de las extremidades, empeoramiento del dolor testicular, empeoramiento del dolor abdominal, n?useas, v?mitos, hematuria macrosc?pica, fiebre, escalofr?os o cualquier otro s?ntoma preocupante. Prescriptions: New levofloxacin 500 mg tablet 500 mg PO DAILY 10 Days Qty: 10 RF: 0 amlodipine 5 mg tablet 5 mg PO DAILY Qty: 14 RF: 0 No Action omeprazole 20 mg capsule,delayed release(DR/EC) 20 mg PO DAILY 56 Days Qty: 56 RF: 0 Referrals: Tiago Saldivar MD [Physician] - 2 days (BLood in sperm and urine) Stand Alone Forms: Work/School Release Interventions: ED Discharge Assessment Last Done: 01/24/21 14:50 Discharge Date/Time: 01/24/21 14:50 Print Language: Amharic
[2021-01-24 09:13] LABS: Alanine Aminotransferase 54 U/L (0-40); Albumin Level 4.4 g/dL (3.5-5.0); Alkaline Phosphatase 66 U/L (39-117); Anion Gap 16 (12-20); Aspartate Amino Transferase 92 U/L (5-37); Bilirubin Total 0.9 mg/dL (0.0-1.0); Blood Urea Nitrogen 7 mg/dL (9-16); Calcium 9.4 mg/dL (8.4-10.2); Carbon Dioxide 25 mmol/L (22-29); Chloride 102 mmol/L (96-108); Creatinine Clr Calc Pharmacy 95.3; Estimated Glomerular Filt Rate > 60; Glucose Random 99 mg/dL (60-115); Potassium 4.1 mmol/L (3.3-5.1); Sodium 139 mmol/L (135-145); Total Protein 7.5 g/dL (6.5-8.0)
[2021-01-24 09:17] LABS: Troponin-I High Sensitivity < 3.5 ng/L (<3.5-35.0)
--- NOTE | 2021-01-24 09:30 | PC.NURSE ---
pt alert and oriented. Pt reports that 4 days ago he masturbated after ejaculating he notice blood in his sperm. He reports that for the past couple days he noticed some blood in his urine, last episode of blood in the urine was yesterday. He also reports mild testicular pain. On arrival to ed pt's diastolic b/p was over 100. Pt denies headache/dizziness/sob or any other symtoms. pt reports that he was on b/p meds but no longer takes them. Pt given clonidine. diastolic b/p high 60s after clonidine.
[2021-01-24] MEDS: iohexoL 350 MG/ML 100 ML INFUS..BTL 85 ML IV (10:29)
[2021-01-24 11:03] LABS: Appearance Urine CLEAR; Color Urine YELLOW; Glucose Urine UA NEG (NEG); Leukocyte Esterase Urine NEG (NEG); Nitrite Urine NEG (NEG); PH 5.5 (5.0-8.0); UACC Culture Trigger NO; Urine Blood 2+ (NEG); Urine Ketones 5 MG/DL (NEG); Urine Protein NEG (NEG-TRACE)
[2021-01-24 11:17] LABS: RBC Urine 30-49 /HPF (0); Squamous Epithelial Cell Urine TRACE /LPF; WBC Urine 0 /HPF (0-4)
[2021-01-24 11:25] VITALS: BP 116/66; PULSE 69; RESP 16; O2SAT 99
[2021-01-24 12:25] LABS: Troponin-I High Sensitivity < 3.5 ng/L (<3.5-35.0)
[2021-01-24 14:08] LABS: CT PCR NOT DETECTED (Not Detect.); NG PCR NOT DETECTED (Not Detect.)
[2021-01-24 14:33] VITALS: BP 106/70; PULSE 71; RESP 16
== END 2021-01-24 14:50 | disposition home or self-care (01) ==
PROVIDERS: Physician Assistant; Emergency Provider Emergency Medicine; PCP Internal Medicine
DX: R31.9 Hematuria, unspecified (principal); N45.1 Epididymitis; R36.1 Hematospermia; I10 Essential (primary) hypertension; R60.0 Localized edema; R51.9 Headache, unspecified; R30.0 Dysuria; Z79.899 Other long term (current) drug therapy
CPT/HCPCS: 36415; 70450; 74178; 76870; 80053; 81001; 81003; 84484; 85025; 85610; 85730; 87491; 87591; 93005; 93975; 99284; Q9967

== ENCOUNTER → 2021-03-19 12:40 | Outpatient (BNVA) | payer MEDICAID, SELFPAY | PROVIDERS: PCP Internal Medicine; Visit Provider Urology | DX: N45.1 Epididymitis (principal); I10 Essential (primary) hypertension; E78.00 Pure hypercholesterolemia, unspecified; Z88.2 Allergy status to sulfonamides | CPT/HCPCS: 99202 ==

== ENCOUNTER 2022-11-17 08:23 | Emergency (ER) | payer MEDICAID, SELFPAY ==
[2022-11-17 08:36] VITALS: BP 153/93; PULSE 90; RESP 16; TEMP 36.3; O2SAT 98; BMI 24.2
--- NOTE | 2022-11-17 08:40 | ED_ITS ---
HPI - General Adult General Chief complaint: Dental/Oral Stated complaint: Dental Pain Time Seen by Provider: 11/17/22 08:39 Source: patient and marketing strategy analyst Mode of arrival: ambulatory Limitations: language barrier History of Present Illness HPI narrative: Patient is a 62 year old assigned male at with a history of alcohol abuse and HTN presenting to the emergency department today with right sided dental pain. Patient states that 3 weeks ago he broke his tooth and he has been having pain ever since. Patient states that he has a change in insurance and has not been able to see a dentist. Patient denies any dizziness, lightheadedness, abdominal pain, nausea, vomiting, fever, chills, blurry vision, double vision, loss of vision, chest pain, difficulty breathing, shortness of breath, back pain, night sweats, pain with urination, increased urinary frequency, increased urinary urgency, blood in his urine or stool, syncope or a near syncopal episode, recent trauma or falls, bowel incontinence, bladder incontinence, bowel retention, bladder retention, or any other complaints at this time. Onset (ago): week(s) (3) Location: mouth Radiation: non-radiation Severity: mild Severity scale (1-10): 3 Quality: aching and dull Pain Consistency: constant Relieving factors: none Exacerbating factors: none Associated symptoms: denies other symptoms Treatments prior to arrival: none Related Data Previous Rx's Medication Instructions Recorded omeprazole 20 mg capsule,delayed 20 mg PO DAILY 8 weeks #56 caps 11/08/20 release amlodipine 5 mg tablet 5 mg PO DAILY hypertension #14 tabs 01/24/21 chlorhexidine gluconate 0.12 % 15 ml buccal BID #118 mL 11/17/22 mouthwash (Peridex) naproxen 500 mg tablet 500 mg PO BID 7 days #14 tabs 11/17/22 penicillin V potassium 500 mg 500 mg PO BID 10 days #20 tabs 11/17/22 tablet Allergies Allergy/AdvReac Type Severity Reaction Status Date / Time Sulfa (Sulfonamide Allergy Unknown RASH Verified 03/19/21 13:03 Antibiotics) Review of Systems Constitutional: Constitutional: Reports no additional constitutional complaints, Denies chills, Denies fever(s) and Denies night sweats Eyes: Eyes: Reports no additional eye complaints, Denies blurry vision, Denies change in vision, Denies diplopia, Denies eye discharge, Denies loss of vision and Denies eye pain ENT: Denies dizziness Comments: dental pain Cardiovascular: Cardiovascular: Reports no additional cardiovascular complaints, Denies chest pain, Denies lightheadedness, Denies Loss of Consciousness and Denies dyspnea Respiratory: Respiratory: Reports no additional respiratory complaints and Denies dyspnea Gastrointestinal: Gastrointestinal: Reports no additional gastrointestinal complaints, Denies abdominal pain, Denies melena, Denies hematochezia, Denies change in bowel habits and Denies change in stool character Genitourinary: Genitourinary: Reports no additional male genitourinary complaints, Denies hematuria, Denies oliguria, Denies difficulty urinating, Denies dysuria, Denies urinary frequency, Denies urinary hesitancy, Denies urinary incontinence and Denies urinary urgency Musculoskeletal: Musculoskeletal: Reports no additional musculoskeletal complaints, Denies numbness and Denies tingling Neurologic: Denies dizziness, Denies loss of vision, Denies numbness and Denies tingling Psychiatric: Psychiatric: Reports no additional psychiatric complaints Endocrine: Endocrine: Reports no additional endocrine complaints Hematologic/Lymphatic: Hematologic/Lymphatic: Reports no additional hematologic/lymphatic complaints Allergic/Immunologic: Allergic/Immunologic: Reports no additional allergic/immunologic complaints PMFSH Past Medical History Attestation statement: The following information was validated with the patient. Source: old records reviewed and nursing notes reviewed Medical History (Updated 11/17/22 @ 09:43 by ANUEL Campos) Alcohol abuse Hiatal hernia High cholesterol HTN (hypertension) Surgical History No significant past surgical history Family History Family History Father Lung cancer Mother Cancer Other Substance abuse Social History Social History Household Members: None Housing: Apartment Do you presently have visiting nurse or other home services: No Alcohol intake: current Alcohol intake frequency: a few times a week Alcohol type: beer, wine and hard liquor Patient Tobacco Use Status: Never used Tobacco Smoked in Last 30 Days: No Second Hand Smoke Exposure: Yes Use of substances other than those prescribed or required for medical reasons: No Advance Directives: No Advance Directives Information Provided: Yes service: No Current occupational status: employed Current occupation: maintenance Physical Exam ED Vital Signs: Vital Signs - 24 hr 11/17/22 08:36 Temperature 97.4 F Pulse Rate 90 Respiratory Rate 16 Blood Pressure 153/93 H Pulse Oximetry 98 Oxygen Delivery Method Room Air BMI result Body Mass Index 24.2 Const General: cooperative, no acute distress, alert and awake Nutritional Appearance: well nourished Orientation/consciousness: patient oriented x3 Limitations: no limitations HENMT Head: Yes normal to inspection and Yes atraumatic Ears: hearing grossly normal bilaterally and external ears normal General nose exam: Normal external nose present, no nasal discharge noted and no epistaxis Face and sinus: Yes normal facial exam, No abrasion and No laceration Mouth: Normal oral and palatal mucosa present, no drooling and no muffled voice Teeth image: 1. Crack Eyes General: appearance normal, both eyes and all related structures Periorbital: periorbital findings normal Eyelids: Yes eyelids normal Conjunctivae: conjunctivae normal Pupils: Equal, round and reactive pupils present EOM: EOMs intact bilaterally Neck Neck: Yes normal visual inspection, Yes full ROM and Yes no lymphadenopathy Chest Chest palpation & inspection: normal inspection of the chest Resp Effort & Inspection: normal respiratory effort and able to speak in complete sentences GI Inspection: Yes normal to inspection Neuro General: patient oriented x3 and moves all extremities Cranial nerves: Yes Equal, round and reactive pupils present Cognition (Neuro): normal cognition Motor exam (neuro): 5/5 motor strength present throughout Sensory Exam: Normal double simultaneous stimulation for sensation Coordination: [id number] test normal Extrem General: Yes normal to inspection, Yes full ROM and Yes capillary refill normal Psych Appearance: grossly normal Mental Status: mental status grossly normal Affect: normal affect Attitude: cooperative Thought process: Normal thought process present Thought content: Normal thought content present Insight: Good insight present (Psych) Medical Decision Making Medical Decision Making MDM Narrative: Patient is a 62 year old assigned male at with a history of HTN and alcohol abuse presenting to the emergency department today with right sided dental pain. Patient's physical exam showed an obviously broken #2 tooth. I explained my physical exam findings to the patient. I answered all questions asked by the patient. I stressed the importance of the patient taking his medication as prescribed. I stressed the importance of the patient following up with his primary care provider and a dentist. I stressed the importance of the patient returning to the emergency department immediately if his symptoms were to worsen or if he were to develop any dizziness, shortness of breath, difficulty breathing, chest pain, blurry vision, loss of vision, nausea, vomiting, abdominal pain, fever, chills, back pain, or any other complaints. Patient verbalized agreement and understanding with this treatment plan and discharge. Differential Diagnosis Differential Diagnoses: The differential diagnosis associated with the presentation includes Dental caries Broken tooth Dental pain Dental abscess Prescription Management I considered prescription management with: Pain Medication (patient prescribed pain medication) and Antibiotic (patient prescribed antibiotic) Chronic Conditions Patient?s care impacted by: Hypertension and Other (alcohol abuse) Social Determinants Patient?s care significantly limited by Social Determinants of Health including: Low income (recently lost job at [employer] Alcohol abuse Discharge Plan Discharge Clinical Impression: Pain, dental, Abscess, dental Patient Disposition: Home, Self-Care Instructions: Dental Abscess (ED), Toothache (ED) Additional Instructions: Follow up with your primary care provider and a dentist. Return to the emergency department immediately if your symptoms worsen or if you develop any dizziness, shortness of breath, difficulty breathing, chest pain, blurry vision, loss of vision, nausea, vomiting, abdominal pain, fever, chills, back pain, or any other complaints. Claudia un seguimiento con don proveedor de atenci?n primaria y un dentista. Regrese al departamento de emergencias de inmediato si jeanne s?ntomas empeoran o si presenta mareos, falta de aire, dificultad para respirar, dolor de pecho, visi?n borrosa, p?rdida de la visi?n, n?useas, v?mitos, dolor abdominal, fiebre, escalofr?os, dolor de espalda o cualquier otras quejas. Call or visit any of the clinics below to establish with a dentist: Llame o visite cualquiera de las cl?nicas a continuaci?n para establecer contacto con un dentista: [facility] [address] [place], [place] [id number] [facility] [address] [place] [address], [id number] [address] [place] [address] [facility] [address] [address] [facility] [address] [place] [address] [place] [address] [place] [address] Prescriptions: New penicillin V potassium 500 mg tablet 500 mg PO BID 10 Days Qty: 20 0RF naproxen 500 mg tablet 500 mg PO BID 7 Days Qty: 14 0RF chlorhexidine gluconate [Peridex] 0.12 % mouthwash 15 ml buccal BID Qty: 118 0RF No Action omeprazole 20 mg capsule,delayed release(DR/EC) 20 mg PO DAILY 56 Days Qty: 56 0RF amlodipine 5 mg tablet 5 mg PO DAILY Qty: 14 0RF [place] [facility] [place]] (Call to establish and follow up with a primary care provider. If you already have a primary care provider, please follow up with them. Llame para establecer y hacer un seguimiento con un proveedor de atenci?n primaria. Si ya tiene un proveedor de atenci?n primaria, claudia un seguimiento con ?l.) [facility] [place] [facility] [Provider Group] (Call to establish and follow up with a primary care provider. If you already have a primary care provider, please follow up with them. Llame para establecer y hacer un seguimiento con un proveedor de atenci?n primaria. Si ya tiene un proveedor de atenci?n primaria, claudia un seguimiento con ?l.) [facility] [place] [facility] (Call to establish and follow up with a primary care provider. If you already have a primary care provider, please follow up with them. Llame para establecer y hacer un seguimiento con un proveedor de atenci?n prim aria. Si ya tiene un proveedor de atenci?n primaria, claudia un seguimiento con ?l.) Interventions: ED Discharge Assessment Last Done: 11/17/22 09:28 Discharge Date/Time: 11/17/22 09:28 Print Language: Hebrew
--- NOTE | 2022-11-17 09:02 | PC.NURSE ---
Patient arrived form home complaining of 5/10 tooth pain. Back right upper molar broken. Patient states broke about 2 weeks ago, has not been able to call a dentist yet. States no dentists take his [facility] where [facility] was previously seen. No bleeding or drainage at site. Right side of face without swelling or redness.
== END 2022-11-17 09:28 | disposition home or self-care (01) ==
PROVIDERS: Emergency Provider Emergency Medicine Emergency Medical Services
DX: K04.7 Periapical abscess without sinus (principal); K08.89 Other specified disorders of teeth and supporting structures; I10 Essential (primary) hypertension; E78.5 Hyperlipidemia, unspecified
CPT/HCPCS: 99283; 99284

== ENCOUNTER 2023-02-17 09:04 | Emergency (ER) | payer OTHER, SELFPAY ==
[2023-02-17 09:23] VITALS: BP 182/93; PULSE 84; RESP 19; TEMP 36.6; O2SAT 98; BMI 20.5
--- NOTE | 2023-02-17 11:01 | ED.GENADULT ---
HPI - General Adult General Chief complaint: General Medical Stated complaint: High Blood Pressure Sent by [facility] Time Seen by Provider: 02/17/23 10:51 History of Present Illness HPI narrative: Patient is a 63-year-old male with a history of hypertension in the past. Presented today with having elevated blood pressure when he was visiting the dentist for dental extraction. Sent to the ED for further evaluation. Patient has no specific complaints. Is from home. Has not been compliant with taking his blood pressure medication as he was lost to follow-up by his primary. Patient was previously on amlodipine 5 mg. Related Data Previous Rx's Medication Instructions Recorded omeprazole 20 mg capsule,delayed 20 mg PO DAILY 8 weeks #56 caps 11/08/20 release amlodipine 5 mg tablet 5 mg PO DAILY hypertension #14 tabs 01/24/21 chlorhexidine gluconate 0.12 % 15 ml buccal BID #118 mL 11/17/22 mouthwash (Peridex) naproxen 500 mg tablet 500 mg PO BID 7 days #14 tabs 11/17/22 penicillin V potassium 500 mg 500 mg PO BID 10 days #20 tabs 11/17/22 tablet amlodipine 5 mg tablet 5 mg PO DAILY #30 tabs 02/17/23 Allergies Allergy/AdvReac Type Severity Reaction Status Date / Time Sulfa (Sulfonamide Allergy Unknown RASH Verified 02/17/23 09:23 Antibiotics) Review of Systems Review of Systems: No chest pain or shortness breath no dizziness no nausea no vomiting positive dental pain but no systemic complaints Yes all other systems are reviewed and are negative PMFSH Past Medical History Attestation statement: The following information was validated with the patient. Medical History Hiatal hernia Alcohol abuse HTN (hypertension) High cholesterol Surgical History No significant past surgical history Family History Family History Father Lung cancer Mother Cancer Other Substance abuse Social History Social History Household Members: None Housing: Apartment Do you presently have visiting nurse or other home services: No Alcohol intake: current Alcohol intake frequency: a few times a week Alcohol type: beer, wine and hard liquor Patient Tobacco Use Status: Never used Tobacco Smoked in Last 30 Days: No Second Hand Smoke Exposure: Yes Use of substances other than those prescribed or required for medical reasons: No Advance Directives: No service: No Current occupational status: employed Current occupation: maintenance Physical Exam ED Vital Signs: Vital Signs - 24 hr 02/17/23 09:23 02/17/23 11:10 02/17/23 11:49 Temperature 98 F 99.2 F 98.7 F Pulse Rate 84 107 H 86 Respiratory Rate 19 18 16 Blood Pressure 182/93 H 176/107 H 186/92 H Pulse Oximetry 98 98 98 Oxygen Delivery Method Room Air Room Air Room Air 02/17/23 12:27 Temperature Pulse Rate 95 Respiratory Rate 16 Blood Pressure 163/89 H Pulse Oximetry 97 Oxygen Delivery Method Room Air BMI result Body Mass Index 20.5 Appearance: Alert. Oriented X3. No acute distress. Eyes: Pupils equal, round and reactive to light. ENT: Pharynx normal. Neck: Normal inspection. Neck supple. No lymph nodes noted. No crepitus CVS: Normal heart rate and rhythm. Pulses normal. Normal S1 and S2 Respiratory: No respiratory distress. Breath sounds normal. No Wheezing. No rales Abdomen: Soft and nontender. No rigidity. No distention. good BS x4 Skin: Skin warm and dry. Normal skin color. Normal skin turgor. Extremities: No lower extremity edema. Neurovascular intact to all extremities. No Lacerations. No Rash Neuro: Oriented X 3. No motor deficit. No sensory deficit. Moving all extermities. No slurred speech Medications Administered Discontinued Medications Generic Name Dose Route Start Last Admin Trade Name Graciela PRN Reason Stop Dose Admin Amlodipine Besylate 5 mg 02/17/23 10:59 02/17/23 11:08 Amlodipine Besylate 5 Mg Tablet PO 02/17/23 11:00 5 mg ONCE ONE Administration Protocol Medical Decision Making Medical Decision Making MDM Narrative: Patient's blood pressure elevated however patient has been noncompliant with his medication including amlodipine. He has been out of his meds. Will request for patient to follow up closely with his doctor. His blood pressure was recheck after 1 dose of medication was given it is down to 150/80. Currently in stable condition symptom-free follow-up on outpatient basis with PMD. In stable condition Differential Diagnosis Differential Diagnoses: The differential diagnosis associated with the presentation includes Hypertensive urgency versus hypertensive emergency Lab Data MDM Lab Attestation statement: I reviewed the patient's lab results. 02/17/23 11:27 02/17/23 11:27 Labs: Lab Results 02/17/23 Range/Units 11:27 WBC 4.9 (4.8-10.8) X10*3/uL RBC 4.24 L (4.60-5.80) X10*6/uL Hgb 14.4 (14.0-18.0) g/dl Hct 41.9 L (42.0-52.0) % MCV 98.8 H (80.0-98.0) fL MCH 34.0 H (27.0-33.0) pg MCHC 34.4 (31.0-36.0) g/dl RDW 12.5 (11.0-16.0) % Plt Count 138 L (160-400) X10*3/uL MPV 10.4 (9.4-12.4) fL Immature Gran % (Auto) 0.2 (0.0-0.4) % Neut % (Auto) 66.0 (45-73) % Lymph % (Auto) 21.4 (20-40) % Blount % (Auto) 9.8 (2-11) % Eos % (Auto) 1.2 (0-4) % Baso % (Auto) 1.4 (0-2) % Lymph # (Auto) 1.1 L (1.2-4.9) X10*3/uL Blount # (Auto) 0.5 (0.1-1.2) X10*3/uL Eos # (Auto) 0.1 (0.0-0.4) X10*3/uL Baso # (Auto) 0.1 (0.0-0.2) X10*3/uL Abs Immat Gran (auto) 0.01 (0.00-0.03) X10*3/uL Absolute Neuts (auto) 3.2 (2.0-8.3) x10*3/uL Absolute Nucleated RBC 0.000 (0.0-0.012) X10*3/uL Nucleated RBC % (auto) 0.0 (0.0-0.2) /100WBC Sodium 142 (135-145) mmol/L Potassium 4.6 (3.3-5.1) mmol/L Chloride 105 (96-108) mmol/L Carbon Dioxide 22 (22-29) mmol/L Anion Gap 20 (12-20) BUN 7 L (9-16) mg/dL Creatinine 0.64 (0.5-1.4) mg/dL Estim Creat Clear Calc 92.3 Estimated GFR > 60 Random Glucose 94 (60-115) mg/dL Calcium 9.3 (8.4-10.2) mg/dL Independent Interpretation I performed an independent interpretation of an: EKG Interpretation: Sinus heart rate is 90 MA QRS QTC within normal limits as no acute ST segment elevation. External Record Review External record reviewed: Inpatient record Chronic Conditions Patient?s care impacted by: Hypertension Social Determinants Patient?s care significantly limited by Social Determinants of Health including: Low income, Problems related to primary support group and Unemployment Discharge Plan Discharge Clinical Impression: HTN (hypertension) Patient Disposition: Home, Self-Care Instructions: Hypertension (ED), How to Take a Blood Pressure (ED) Prescriptions: New amlodipine 5 mg tablet 5 mg PO DAILY Qty: 30 0RF No Action omeprazole 20 mg capsule,delayed release(DR/EC) 20 mg PO DAILY 56 Days Qty: 56 0RF amlodipine 5 mg tablet 5 mg PO DAILY Qty: 14 0RF penicillin V potassium 500 mg tablet 500 mg PO BID 10 Days Qty: 20 0RF naproxen 500 mg tablet 500 mg PO BID 7 Days Qty: 14 0RF chlorhexidine gluconate [Peridex] 0.12 % mouthwash 15 ml buccal BID Qty: 118 0RF Referrals: Jerry Kothari MD [Primary Care Provider] - 2 days (For blood pressure recheck)
[2023-02-17 11:10] VITALS: BP 176/107; PULSE 107; RESP 18; TEMP 37.3; O2SAT 98
--- NOTE | 2023-02-17 11:18 | PC.NURSE ---
a&ox3, vss aside from hypertension(178/119) and low grade temp (99.2). pt comes in today d/t hypertension. pt was at dentist appt geting tooth extracted but dentist refused d/t elevated BP. pt denies d/n/v/blurry vision/lightheadedness/dizziness at this time. pt denies taking medications for HTN. pt currently resting in no apparent distress at this time. respirations even and unlabored. ekd performed by tech. BP cycling q15min. medication administered per provider order. call mendez placed within reach.
[2023-02-17 11:45] LABS: Anion Gap 20 (12-20); Blood Urea Nitrogen 7 mg/dL (9-16); Calcium 9.3 mg/dL (8.4-10.2); Carbon Dioxide 22 mmol/L (22-29); Chloride 105 mmol/L (96-108); Creatinine Clr Calc Pharmacy 92.3; Estimated Glomerular Filt Rate > 60; Glucose Random 94 mg/dL (60-115); Potassium 4.6 mmol/L (3.3-5.1); Sodium 142 mmol/L (135-145)
[2023-02-17 11:49] VITALS: BP 186/92; PULSE 86; RESP 16; TEMP 37.1; O2SAT 98
[2023-02-17 12:27] VITALS: BP 163/89; PULSE 95; RESP 16; O2SAT 97
--- NOTE | 2023-02-17 12:29 | PC.NURSE ---
pt's BP slowly decreasing at this time(163/89). pt still denies any sx aside from 2/10 tooth pain. resting comfortably i no apparent distress. respirations even and unlabored. call mendez placed within reach.
== END 2023-02-17 13:26 | disposition home or self-care (01) ==
PROVIDERS: Emergency Provider Emergency Medicine Emergency Medical Services; PCP Internal Medicine
DX: I10 Essential (primary) hypertension (principal); R94.31 Abnormal electrocardiogram [ECG] [EKG]; Z79.899 Other long term (current) drug therapy
CPT/HCPCS: 36415; 80048; 85025; 93005; 99283; 99284

== ENCOUNTER 2023-04-09 06:25 | Emergency (ER) | payer OTHER, SELFPAY ==
[2023-04-09 06:28] VITALS: BP 124/83; BP 148/86; PULSE 102; PULSE 116; RESP 20; TEMP 36.9; O2SAT 100; O2SAT 94; BMI 21.5
[2023-04-09 06:36] VITALS: BP 110/78; PULSE 116; RESP 20; O2SAT 100
--- NOTE | 2023-04-09 06:50 | ED.GENADULT ---
HPI - General Adult General Chief complaint: General Medical Stated complaint: blood in mouth post surgery Time Seen by Provider: 04/09/23 06:48 Source: patient Mode of arrival: ambulatory Limitations: language barrier (First language is Tuvaluan, speaks Micronesian but anesthesiology physician was used) History of Present Illness HPI narrative: 63-year-old male who has history of hypertension, high cholesterol, alcohol use disorder, who presents emergency department for evaluation of waking up with blood in his mouth. The patient states that had a broken tooth had a dental extraction on 04/07/2023 (2 days prior to evaluation). States that did not have an infection has had no dental pain. Patient states that at 03:00 hours he woke up with blood in his mouth therefore came to emergency department for evaluation. The patient states that he has also been having visual hallucinations. He also drinks alcohol anywhere from 6 beers per day. He states he does sometimes get shakes when he stops drinking. Patient states he has had no alcohol to drink today. He has not been diagnosed with depression but he states that he is depressed. Related Data Previous Rx's Medication Instructions Recorded chlorhexidine gluconate 0.12 % 15 ml buccal BID #118 mL 11/17/22 mouthwash (Peridex) naproxen 500 mg tablet 500 mg PO BID 7 days #14 tabs 11/17/22 penicillin V potassium 500 mg 500 mg PO BID 10 days #20 tabs 11/17/22 tablet amlodipine 5 mg tablet 5 mg PO DAILY #90 tabs 03/12/23 omeprazole 20 mg capsule,delayed 20 mg PO DAILY 8 weeks #56 caps 03/12/23 release Allergies Allergy/AdvReac Type Severity Reaction Status Date / Time Sulfa (Sulfonamide Allergy Unknown RASH Verified 02/17/23 09:23 Antibiotics) Review of Systems Review of Systems: Yes all other systems are reviewed and are negative PMFSH Past Medical History PMFSH Narrative: Social history: Patient denies tobacco use. He does drink alcohol. Denies drug use. Medical History Hiatal hernia Alcohol abuse HTN (hypertension) High cholesterol Surgical History No significant past surgical history Family History Family History Father Lung cancer Mother Cancer Other Substance abuse Social History Social History Household Members: None Housing: Apartment Do you presently have visiting nurse or other home services: No Alcohol intake: current Alcohol intake frequency: a few times a week Alcohol type: beer, wine and hard liquor Patient Tobacco Use Status: Never used Tobacco Second Hand Smoke Exposure: Yes Advance Directives: No Advance Directives Information Provided: No service: No Current occupational status: employed Current occupation: maintenance Physical Exam ED Vital Signs: Vital Signs - 24 hr 04/09/23 06:28 04/09/23 06:36 Temperature 98.4 F Pulse Rate 116 H 116 H Respiratory Rate 20 20 Blood Pressure 124/83 110/78 Pulse Oximetry 100 100 Oxygen Delivery Method Room Air Room Air BMI result Body Mass Index 21.5 Vital signs were normal Exam: General: Awake, alert in no distress, he is tremulous Head: Normocephalic, atraumatic EENT: PERRL, Lids normal, sclera normal, conjunctiva normal, nose normal , ears normal, throat without erythema or exudates, patient does have a blood clot over the area dental extraction, no gingival swelling, no evidence of abscess Neck: Supple, no adenopathy, no trachea midline or C-spine tenderness Neuro: Awake, alert, oriented, normal speech, cranial nerves intact, moves all extremities symmetrically Psych: Pleasant, cooperative Medical Decision Making Medical Decision Making MDM Narrative: 63-year-old male with a history of hypertension, hyperlipidemia, alcohol use disorder who presents emergency department for evaluation of bleeding his mouth after a dental extraction 2 days prior. He is also complaining of intermittent visual hallucinations. The patient does have history of alcohol use disorder and does drink at least 6 beers per day. He does get tremors when he stops drinking. Patient's vital signs did reveal tachycardia with of pulse of 116. Patient is tremulous but oriented to person place. He answers all questions appropriately. Does not appear to be actively was sitting at this time. Patient's mouth exam did reveal a clot over the extracted 2 with no evidence of infection Patient was given gauze instructed on how to fold the gauze in fluid in the area of bleeding in the leave it on for 20 minutes and only changed because if he bleeds through the gauze. I did tell patient that his hallucinations may be secondary to his alcohol use disorder and that he he should stop drinking. He is not interested in getting into detox at this point. Patient will be referred to [facility] as well. Differential Diagnosis Differential Diagnoses: The differential diagnosis associated with the presentation includes Differential diagnosis: Dental: Infection, bleeding secondary to extraction Auditory hallucinations: Depression, anxiety, bipolar, delirium tremens, alcohol withdrawal Chronic Conditions Patient?s care impacted by: Hypertension and Other (Alcohol use disorder) Discharge Plan Discharge Clinical Impression: Surgical wound hemorrhage after dental procedure, Alcohol use disorder, Hallucination, visual Patient Disposition: Home, Self-Care Additional Instructions: The area where you had the tooth extracted the looks good, there is no infection. You do have a blood clot in this area which is consistent with healing. Sometimes the after a dental extraction, the blood clot can break often caused bleeding. If you get bleeding again fold the gauze as instructed and put it over the area of bleeding. Put pressure on this area with your tongue and leave the gauze in for at least 20 minutes and only change the gauze if you soaked through it. If you do this repeat only for an hour that should stop the bleeding if you continue to bleed you can return to the emergency department. Your visual hallucinations are most likely caused by your alcohol use disorder. Sometimes when you stop drinking you can have hallucinations. If you want help with your alcohol use contact 1 of the clinics on the list. If you want further help for possible depression you can follow-up with [facility]. Their phone number is . Follow-up with your doctor in 2 days. Please return to the emergency department if your symptoms get worse or if you develop any symptoms that are concerning to you. Prescriptions: No Action omeprazole 20 mg capsule,delayed release(DR/EC) 20 mg PO DAILY 56 Days Qty: 56 0RF amlodipine 5 mg tablet 5 mg PO DAILY Qty: 90 1RF penicillin V potassium 500 mg tablet 500 mg PO BID 10 Days Qty: 20 0RF naproxen 500 mg tablet 500 mg PO BID 7 Days Qty: 14 0RF chlorhexidine gluconate [Peridex] 0.12 % mouthwash 15 ml buccal BID Qty: 118 0RF
== END 2023-04-09 08:19 | disposition home or self-care (01) ==
PROVIDERS: Emergency Provider Emergency Medicine Emergency Medical Services; PCP Internal Medicine
DX: K91.840 Postprocedural hemorrhage of a digestive system organ or structure following a digestive system procedure (principal); F10.10 Alcohol abuse, uncomplicated; Y90.9 Presence of alcohol in blood, level not specified; R44.1 Visual hallucinations; Z79.899 Other long term (current) drug therapy
CPT/HCPCS: 99283; 99284

== ENCOUNTER 2023-07-12 17:18 | Outpatient (AMB) | payer OTHER, SELFPAY ==
[2023-07-12 17:25] VITALS: BP 152/88; PULSE 94; RESP 16; O2SAT 99; BMI 21.5
--- NOTE | 2023-07-12 17:25 | MHC.PC.OV ---
Vital Signs 07/12/23 17:25 Height 5 ft 4 in Weight 125 lb 4 oz BMI 21.5 BP 152/88 H Blood Pressure Location Lt brachial Position Sitting Respiration 16 Pulse 94 Pulse Source Pulse Oximeter Pulse Oximetry (%) 99 Oxygen Delivery Method Room Air Intake Visit Reasons: Annual PE Intake Note: The patient is present today for a physical examination. The patient's current concerns include elevated blood pressure readings and fungal infections on both big toes. Die Maintenance Required: Yes Die Maintenance Language: [place]er Accompanied by: Self / Same As Patient Allergies Sulfa (Sulfonamide Antibiotics) Allergy (Unknown, Verified 07/12/23 17:33) RASH Medication List - Last Reconciled 07/12/23 by Jerry Kothari MD amlodipine 5 mg PO DAILY naproxen 500 mg PO BID 7 days omeprazole 20 mg PO DAILY 8 weeks Tobacco use date assessed: 07/12/23 Fall risk assessment: 2 + Falls in past year Last assessed Fall Risk: 07/12/23 Dental Screening Dental Screen Date: 07/12/23 Did you have a dental visit in the last 12 months?: Yes Did you have a dental problem in the last 6 months where you did not have access to dental care?: No Was dental information given to patient?: Patient has dentist HPI Annual PE HPI Details Patient comes in today for his annual physical examination and to REestablish care - was last seen a few years ago on 11/20/2020 Patient states that he feels okay He denies any headaches or dizziness Denies any chest pains, no SOB No nausea/vomiting, no abdominal pain No change in bowel habits noted He denies any acute urinary symptoms Needs all of his Rx refilled PFSH Medical History (Updated 07/12/23 @ 18:32 by Jerry Kothari MD) Pure hypercholesterolemia Hiatal hernia Alcohol abuse HTN (hypertension) High cholesterol Surgical History No significant past surgical history Family History Father Lung cancer Mother Cancer Other Substance abuse Social History Household Members: None Housing: Apartment Do you presently have visiting nurse or other home services: No Alcohol intake: current Alcohol intake frequency: a few times a week Alcohol type: beer, wine and hard liquor Patient Tobacco Use Status: Never used Tobacco e-Cigarette/Vaping Use: Never Used Second Hand Smoke Exposure: Yes service: No Current occupational status: employed Current occupation: maintenance Cognitive needs: No Hearing needs: No Vision needs: No Questionnaire PHQ-9 Over the last 2 weeks, how often have you been bothered by any of the following problems? 1. Little interest or pleasure in doing things: not at all 2. Feeling down, depressed, or hopeless: not at all 3. Trouble falling or staying asleep, or sleeping too much: not at all 4. Feeling tired or having little energy: not at all 5. Poor appetite or overeating: not at all 6. Feeling bad about yourself - or that you are a failure or have let yourself or your family down: not at all 7. Trouble concentrating on things, such as reading the newspaper or watching television: not at all 8. Moving or speaking so slowly that other people could have noticed. Or the opposite - being so fidgety or restless that you have been moving around a lot more than usual: not at all 9. Thoughts that you would be better off or of hurting yourself in some way: not at all Total score: 0 Depression Screening Interpretation: Negative Depression Screening Done: Yes 21368 - PHQ-9 Billing: Yes Source: Developed by Drs. Brandon Sheffield, Julia Velasquez, Heath Lerner and colleagues, with an educational taisha from [employer]. Thrive Questionnaire Date Thrive assessed: 07/12/23 I am a: Patient What is your living situation today?: I have a steady place to live Within the past 12 months, did the food you bought not last and you didn't have the money to get more?: Never true Within the past 12 months, did you worry whether your food would run out before you got money to buy more?: Never true Do you have trouble paying for medicines?: No Do you have trouble getting transportation to medical appointments?: No Do you have trouble paying your heating and electricity bill?: No Do you have trouble taking care of your child, family member or friend?: No Do you have trouble with day-to-day activities such as bathing, preparing meals, shopping, managing finances, etc.?: No Are you currently unemployed and looking for a job?: No Are you interested in more education?: No Please select the resources that you would like help with: None Currently or been in a relationship where the following occur: no concerns reported THRIVE Score: 0 AUDIT C Alcohol Use Questionnaire (AUDIT-C) 1. How often do you have a drink containing alcohol?: 2-4 times a month 2. How many drinks containing alcohol do you have on a typical day when you are drinking?: 3 or 4 3. How often do you have six or more drinks on one occasion?: Less than monthly Total Score: 4 Score Reviewed/Action Taken: Yes (patient is again urged to cut back on his drinking and quit eventually ) SHIRA-7 AMB Questionnaire SHIRA-7 Date SHIRA - 7 assessed: 07/12/23 Feeling nervous, anxious, or on edge: 0 = Not at all Not being able to stop or control worryin = Not at all Worrying too much about different things: 0 = Not at all Trouble relaxin = Not at all Being so restless that it is hard to sit still: 0 = Not at all Becoming easily annoyed or irritable: 0 = Not at all Feeling afraid as if something awful might happen: 0 = Not at all Total SHIRA-7 score (0-4 normal; 5-9 mild; 10-14 moderate; 15-21 severe): 0 Source: Developed by Drs. Brandon Sheffield, Julia Velasquez, Heath Lerner and colleagues, with an educational taisha from [employer]. SHIRA-7 Assessment Billing SHIRA-7 Assessment Tool: SHIRA-7 Assessment 74245 Review of Systems Const Denies chills, Denies fatigue, Denies fever(s), Denies headache(s), Denies malaise and Denies weakness Eyes Denies blurry vision, Denies change in vision, Denies irritation and Denies itchy eyes ENT Denies dysphagia, Denies dizziness, Denies otalgia, Denies headache(s), Denies nasal congestion, Denies neck pain, Denies odynophagia and Denies sore throat Card Denies chest pain, Denies rapid heart rate, Denies irregular heart rhythm, Denies palpitations and Denies dyspnea Resp Denies chest congestion, Denies cough, Denies dyspnea and Denies wheezing GI Denies abdominal pain, Denies bloating, Denies constipation, Denies dysphagia, Denies heartburn, Denies diarrhea, Denies nausea, Denies odynophagia and Denies vomiting Denies hematuria, Denies difficulty urinating, Denies dysuria, Denies urinary frequency and Denies urinary urgency Musc Denies back pain, Denies arthralgias, Denies joint swelling, Denies muscle weakness and Denies neck pain Skin/Breast Denies change in pigmentation, Denies lesions, Denies rash and Denies unusual bruising Neuro Denies dizziness, Denies headache(s), Denies paresthesias and Denies weakness Psych Reports anxiety Endo Denies fatigue and Denies palpitations Aller/Immun Denies itchy eyes and Denies wheezing Physical exam (Primary Care) Vital Signs: Last Vital Signs Pulse 94 07/12/23 17:25 Resp 16 07/12/23 17:25 BP 152/88 H 07/12/23 17:25 Pulse Ox 99 07/12/23 17:25 Oxygen Delivery Method Room Air 07/12/23 17:25 BMI result Body Mass Index 21.5 Tobacco/Smoking Status: Tobacco use Status Tobacco use date assessed 07/12/23 07/12/23 17:31 Patient Tobacco Use Status Never used Tobacco 07/12/23 17:31 e-Cigarette/Vaping Use Never Used 07/12/23 17:31 PHQ-9: PHQ-9 Score PHQ-9: Total score 0 07/12/23 17:31 Depression Screening Interpretation: Negative Thrive Assessment: Date of Thrive Assessment Date Thrive assessed 07/12/23 07/12/23 17:31 Currently or been in a relationship where the following occur: no concerns reported Const General: no acute distress, alert and awake Orientation/consciousness: patient oriented x3 HENMT Head: Yes normocephalic and Yes atraumatic Ears: external ears normal, TM's normal bilaterally and EAC's normal General nose exam: No nasal discharge present Face and sinus: Yes normal facial exam and Yes sinuses nontender Teeth and gingiva: dentition normal Throat: Yes posterior oropharynx normal and Yes tonsils normal (no TP congestion) Eyes Eyelids: Yes eyelids normal Conjunctivae: conjunctivae normal Pupils: Equal, round and reactive pupils present EOM: EOMs intact bilaterally Neck Neck: Yes no lymphadenopathy and Yes supple Thyroid: Thyroid normal Resp Auscultation: clear to auscultation bilaterally, no rales and no wheezes Cardio Rate: regular rate Rhythm: regular rhythm Heart sounds: no murmurs GI Palpation (GI): Soft to palpation, nontender and No hepatosplenomegaly present Auscultation: normal bowel sounds General: Yes no CVA tenderness Back/Spine/Pelvis Back: no CVA tenderness Thoracic/Lumbar Spine: thoracic and lumbar spine normal to inspection Skin Lesions: no lesions Rashes: no rashes Neuro General: patient oriented x3, moves all extremities, no focal motor deficits and CN's II-XI intact bilaterally Cranial nerves: Yes Equal, round and reactive pupils present Cognition (Neuro): normal cognition Gait exam (Neuro): Normal gait present Extrem General: Yes no clubbing, cyanosis or edema Assessment and Plan Assessment & Plan (1) Annual physical exam: Code(s): Z00.00 - Encounter for general adult medical examination without abnormal findings Plan: Check labs Patient states that he does not recall ever getting a colonoscopy done in the past (2) Essential hypertension: Code(s): I10 - Essential (primary) hypertension Plan: Reinforced low sodium diet - goal is systolic BP of at least 120 to 130 mm or less Patient states that his blood pressure usually tends to run higher whenever he goes into a doctor's office and he is attributing this to possible anxiety or white coat syndrome Continue Amlodipine 5 mg QD for now Will have patient try to monitor his blood pressure regularly (3) Pure hypercholesterolemia: Code(s): E78.00 - Pure hypercholesterolemia, unspecified Plan: (+) Hx of high cholesterol levels but patient has not had his cholesterol checked in a while His LDL cholesterol was at 125 mg/dl when they were last checked in 2009 Reinforced low cholesterol diet Will have patient get his labs and fasting lipids done [facility] for follow up (4) Hiatal hernia: Comment: EGD done on 11/08/2020 revealed normal findings, with only (+) hiatal hernia Code(s): K44.9 - Diaphragmatic hernia without obstruction or gangrene Plan: Reinforced dietary restrictions Continue Omeprazole 20 mg QD - Rx refilled (5) Alcohol abuse: Code(s): F10.10 - Alcohol abuse, uncomplicated Plan: Patient is advised again on quitting alcohol completely and maintaining sobriety Have offered to refer him to AA if he wishes - patient states that he will call if he needs any help (6) Onychomycosis: Code(s): B35.1 - Tinea unguium Plan: Will refer him to podiatry for further evaluation and management (7) Colon cancer screening: Code(s): Z12.11 - Encounter for screening for malignant neoplasm of colon Plan: Will refer patient for a screening colonoscopy - states that he has never had one done in the past Plan Follow up in 3 months Orders: Orders Lipid Panel Today E78.00 - Pure hypercholesterolemia, unspecified, Z00.00 - Encounter for general adult medical examination without abnormal findings Vitamin D 25-OH Total Today E55.9 - Vitamin D deficiency, unspecified, Z00.00 - Encounter for general adult medical examination without abnormal findings Complete Blood Count Auto Diff Today D64.9 - Anemia, unspecified, Z00.00 - Encounter for general adult medical examination without abnormal findings Comprehensive [place]. Panel Fast Today E78.00 - Pure hypercholesterolemia, unspecified, Z00.00 - Encounter for general adult medical examination without abnormal findings TSH reflex Free T4 Today E78.00 - Pure hypercholesterolemia, unspecified, Z00.00 - Encounter for general adult medical examination without abnormal findings UA CC w/rflx Micro + Cult Today R30.0 - Dysuria, Z00.00 - Encounter for general adult medical examination without abnormal findings Prostate Specific Antigen Today N40.0 - Benign prostatic hyperplasia without lower urinary tract symptoms, Z00.00 - Encounter for general adult medical examination without abnormal findings Referrals Gastroenterology Referral Z12.11 - Encounter for screening for malignant neoplasm of colon Podiatry Referral B35.1 - Tinea unguium Medications: Changed From naproxen 500 mg PO BID 7 days 14 tabs 0RF To naproxen Take with food and ONLY NEEDED 500 mg PO BID PRN 30 tabs 1RF pain Refilled omeprazole 20 mg PO DAILY 8 weeks 56 caps 0RF amlodipine 5 mg PO DAILY 90 tabs 1RF I10 - Essential (primary) hypertension Coding Level of Care Code Est Pt Prev Care 40-64y(31348) Diagnoses Annual physical exam Z00.00 Essential hypertension I10 Pure hypercholesterolemia E78.00 Hiatal hernia K44.9 Alcohol abuse F10.10 Onychomycosis B35.1 Colon cancer screening Z12.11 Additional Codes SHIRA-7 Assessment Billing - SHIRA-7 Assessment Tool: SHIRA-7 Assessment [id number] ([id number])
== END 2023-07-12 17:46 | disposition home or self-care (01) ==
PROVIDERS: PCP Internal Medicine; Visit Provider Internal Medicine
DX: Z00.00 Encounter for general adult medical examination without abnormal findings (principal); I10 Essential (primary) hypertension; E78.00 Pure hypercholesterolemia, unspecified; K44.9 Diaphragmatic hernia without obstruction or gangrene; F10.10 Alcohol abuse, uncomplicated; B35.1 Tinea unguium; Z12.11 Encounter for screening for malignant neoplasm of colon
CPT/HCPCS: 99396

== ENCOUNTER 2023-07-19 08:03 | Outpatient (REF) | payer OTHER, SELFPAY ==
[2023-07-19 08:21] LABS: MANUAL DIFF FLAG NO
[2023-07-19 08:37] LABS: Basophils Absolute Auto 0.1 X10*3/uL (0.0-0.2); Basophils Percent Auto 2.2 % (0-2); Eosinophils Absolute Auto 0.4 X10*3/uL (0.0-0.4); Eosinophils Percent Auto 8.4 % (0-4); Hematocrit 40.8 % (42.0-52.0); Hemoglobin 14.1 g/dl (14.0-18.0); Imm Gran Abs Auto 0.01 X10*3/uL (0.00-0.03); Imm Gran Pct Auto 0.2 % (0.0-0.4); Lymphocytes Absolute Auto 1.6 X10*3/uL (1.2-4.9); Lymphocytes Percent Auto 38.3 % (20-40); Mean Corpuscular HGB Conc 34.6 g/dl (31.0-36.0); Mean Corpuscular Hemoglobin 34.6 pg (27.0-33.0); Mean Platelet Volume 10.4 fL (9.4-12.4); Monocytes Absolute Auto 0.5 X10*3/uL (0.1-1.2); Monocytes Percent Auto 12.5 % (2-11); Neutrophils Absolute Auto 1.6 x10*3/uL (2.0-8.3); Neutrophils Percent Auto 38.4 % (45-73); Platelet Count 158 X10*3/uL (160-400); Red Blood Count 4.08 X10*6/uL (4.60-5.80); White Blood Count 4.2 X10*3/uL (4.8-10.8)
[2023-07-19 09:07] LABS: Alanine Aminotransferase 61 U/L (0-40); Albumin Level 4.1 g/dL (3.5-5.0); Alkaline Phosphatase 94 U/L (39-117); Anion Gap 14 (12-20); Aspartate Amino Transferase 123 U/L (5-37); Bilirubin Total 0.5 mg/dL (0.0-1.0); Blood Urea Nitrogen 7 mg/dL (9-16); Calcium 8.9 mg/dL (8.4-10.2); Carbon Dioxide 30 mmol/L (22-29); Chloride 107 mmol/L (96-108); Cholesterol 219 mg/dL (<200); Estimated Glomerular Filt Rate > 60; Glucose Fasting 98 mg/dL (60-99); HDL Cholesterol 76 mg/dL (>40); LDL Cholesterol Calculated 122 mg/dL (<100); Potassium 3.7 mmol/L (3.3-5.1); Sodium 147 mmol/L (135-145); Total Protein 7.7 g/dL (6.5-8.0); Triglycerides 106 mg/dL (<150)
[2023-07-19 09:21] LABS: Vitamin D 25-OH Total 11.1 ng/mL (>30)
[2023-07-19 09:25] LABS: Prostate Specific Antigen 2.06 ng/mL (<0.05-4.0)
== END 2023-07-19 08:04 | disposition home or self-care (01) ==
LOC: HO.LAB 08:03
PROVIDERS: PCP Internal Medicine; Visit Provider Internal Medicine
DX: Z00.00 Encounter for general adult medical examination without abnormal findings (principal); D64.9 Anemia, unspecified; E78.00 Pure hypercholesterolemia, unspecified; E55.9 Vitamin D deficiency, unspecified; N40.0 Benign prostatic hyperplasia without lower urinary tract symptoms; R30.0 Dysuria
CPT/HCPCS: 36415; 80053; 80061; 82306; 84153; 84443; 85025

== ENCOUNTER 2023-07-20 08:32 | Outpatient (REF) | payer OTHER, SELFPAY ==
[2023-07-20 08:39] LABS: Appearance Urine Clear; Color Urine Yellow; Glucose Urine UA Negative (Negative); Leukocyte Esterase Urine Negative (Negative); Nitrite Urine Negative (Negative); PH 5.5 (5.0-9.0); Specific Gravity - Urine <= 1.005 (1.005-1.025); Urine Blood Negative (Negative); Urine Ketones Negative (Negative); Urine Protein Negative (Neg-Trace)
== END 2023-07-20 08:33 | disposition home or self-care (01) ==
LOC: HO.LNP 08:32
PROVIDERS: Visit Provider Internal Medicine
DX: Z00.00 Encounter for general adult medical examination without abnormal findings (principal); R30.0 Dysuria
CPT/HCPCS: 81003

== ENCOUNTER 2023-10-25 12:57 | Outpatient (AMB) | payer OTHER, SELFPAY ==
--- NOTE | 2023-10-25 12:58 | A.OFFPC_ITS ---
Vital Signs 10/25/23 12:59 Height 5 ft 4 in Weight 121 lb 8 oz BMI 20.9 BP 134/86 Blood Pressure Location Lt brachial Position Sitting Pulse 101 H Pulse Source Pulse Oximeter Pulse Oximetry (%) 98 Oxygen Delivery Method Room Air Intake Visit Reasons: 3 month f/u HTN, GERD Intake Note: Patient is here to follow up on HTN, GERD. Complain of itchy tongue on going for a month. Oil Inspector Required: Yes Oil Inspector Language: Business Process Lead Name: Elise (Family Friend) Information Interpreted: non-clinical & clinical Site Worker: Present Accompanied by: Friend Allergies Sulfa (Sulfonamide Antibiotics) Allergy (Unknown, Verified 10/25/23 13:43) RASH Medication List - Last Reconciled 10/25/23 by Jerry Kothari MD amlodipine 5 mg PO DAILY omeprazole 20 mg PO DAILY 8 weeks Tobacco use date assessed: 10/25/23 Fall risk assessment: No Falls in past year Last assessed Fall Risk: 10/25/23 Dental Screening Dental Screen Date: 07/12/23 HPI 3 month f/u HTN, GERD HPI Details Patient comes in today for his follow up visit States that he feels okay but reports some irritation/numbness on the top of his tongue recently States that he has trouble tasting anything that he eats or drinks lately as a result; denies burning his tongue recently He denies any headaches or dizziness Denies any dysphagia or sore throat Denies any chest pains, no SOB No nausea/vomiting, no abdominal pain No change in bowel habits noted Needs his Amlodipine Rx refilled He would also like to know how he did on his labs done back a few months ago [facility] Medical History (Updated 01/07/24 @ 02:42 by Jerry Kothari MD) Vitamin D deficiency Pure hypercholesterolemia Hiatal hernia Alcohol abuse HTN (hypertension) High cholesterol Surgical History No significant past surgical history Family History Father Lung cancer Mother Cancer Other Substance abuse Social History Household Members: None Housing: Apartment Do you presently have visiting nurse or other home services: No Alcohol intake: current Alcohol intake frequency: a few times a week Alcohol type: beer, wine and hard liquor Patient Tobacco Use Status: Never used Tobacco e-Cigarette/Vaping Use: Never Used Second Hand Smoke Exposure: Yes service: No Current occupational status: employed Current occupation: maintenance Cognitive needs: No Hearing needs: No Vision needs: No Questionnaire Thrive Questionnaire Date Thrive assessed: 07/12/23 SHIRA-7 AMB Questionnaire SHIRA-7 Date SHIRA - 7 assessed: 07/12/23 Source: Developed by Drs. Brandon Sheffield, Julia Velasquez, Heath Lerner and colleagues, with an educational taisha from [employer]. Review of Systems Const Denies chills, Denies fatigue, Denies fever(s) and Denies headache(s) ENT Denies dysphagia, Denies dizziness, Denies otalgia, Denies headache(s), Denies neck pain, Denies odynophagia, Denies sore throat and Denies tongue swelling (but (+) irritation on the top of his tongue lately) Card Denies chest pain, Denies rapid heart rate, Denies irregular heart rhythm, Denies palpitations and Denies dyspnea Resp Denies cough, Denies dyspnea and Denies wheezing GI Denies abdominal pain, Denies constipation, Denies dysphagia, Denies heartburn, Denies diarrhea, Denies nausea, Denies odynophagia and Denies vomiting Denies difficulty urinating, Denies dysuria and Denies urinary frequency Musc Denies back pain, Denies arthralgias, Denies muscle weakness and Denies neck pain Skin/Breast Denies rash Neuro Denies dizziness, Denies headache(s) and Denies paresthesias Psych Reports anxiety Endo Denies fatigue and Denies palpitations Aller/Immun Denies tongue swelling (but (+) irritation on the top of his tongue lately) and Denies wheezing Physical exam (Primary Care) Vital Signs: Last Vital Signs Pulse 101 H 10/25/23 12:59 BP 134/86 10/25/23 12:59 Pulse Ox 98 10/25/23 12:59 Oxygen Delivery Method Room Air 10/25/23 12:59 BMI result Body Mass Index 20.9 Tobacco/Smoking Status: Tobacco use Status Tobacco use date assessed 10/25/23 10/25/23 13:09 Patient Tobacco Use Status Never used Tobacco 10/25/23 13:09 e-Cigarette/Vaping Use Never Used 10/25/23 13:09 Thrive Assessment: Date of Thrive Assessment Date Thrive assessed 07/12/23 10/25/23 13:09 Const General: no acute distress and alert HENMT Ears: TM's normal bilaterally and EAC's normal Throat: Yes posterior oropharynx normal and Yes tonsils normal (no TP congestion) Neck Neck: Yes no lymphadenopathy and Yes supple Thyroid: Thyroid normal Resp Auscultation: clear to auscultation bilaterally, no rales and no wheezes Cardio Rate: regular rate Rhythm: regular rhythm Heart sounds: no murmurs GI Palpation (GI): Soft to palpation and nontender Auscultation: normal bowel sounds General: Yes no CVA tenderness Back/Spine/Pelvis Back: no CVA tenderness Thoracic/Lumbar Spine: No lumbar spinal tenderness Skin Rashes: no rashes Extrem General: Yes no clubbing, cyanosis or edema Results Reviewed Results Reviewed: Laboratory Tests 01/24/21 07/19/23 07/20/23 08:44 08:20 06:00 WBC 4.2 L Hgb 14.1 Hct 40.8 L RDW 13.0 Sodium 147 H Potassium 3.7 Creatinine 0.68 Estimated GFR > 60 Fasting Glucose 98 Calcium 8.9 Total Bilirubin 0.5 AST 92 H 123 H ALT 54 H 61 H Alkaline Phosphatase 94 Triglycerides 106 Cholesterol 219 H LDL Cholesterol, Calc 122 H HDL Cholesterol 76 Prostate Specific Ag 2.06 25-OH Vitamin D Total 11.1 L TSH 1.40 Ur Specific [place] <= 1.005 Urine Protein Negative Urine Glucose (UA) Negative Urine Blood Negative Urine Nitrite Negative Ur Leukocyte Esterase Negative Assessment and Plan Assessment & Plan (1) Essential hypertension: Code(s): I10 - Essential (primary) hypertension Plan: Reinforced low sodium diet - goal is systolic BP of at least 120 to 130 mm or less Patient states that his blood pressure usually tends to run higher whenever he g oes into a doctor's office and he is attributing this to possible anxiety or white coat syndrome Continue Amlodipine 5 mg QD for now - Rx refilled Will have patient try to monitor his blood pressure regularly (2) Pure hypercholesterolemia: Code(s): E78.00 - Pure hypercholesterolemia, unspecified Plan: Results of his labs done a few months ago (in July 2023) reviewed and discussed with patient - is advised that his cholesterol levels are still within normal range although they are at the higher end of normal (LDL is at 125 mg /dl) Total cholesterol is up at 219 mg/dl but this is mostly due to his high HDL cholesterol, which is at 76 mg/dl Reinforced low cholesterol diet (3) Hiatal hernia: Comment: EGD done on 11/08/2020 revealed normal findings, with only (+) hiatal hernia Code(s): K44.9 - Diaphragmatic hernia without obstruction or gangrene Plan: Reinforced dietary restrictions Continue Omeprazole 20 mg QD - Rx refilled (4) Alcohol abuse: Code(s): F10.10 - Alcohol abuse, uncomplicated Plan: Patient is advised again on quitting alcohol completely and maintaining sobriety Have offered to refer him to AA if he wishes - patient states that he will call if he needs any help (5) Glossitis: Code(s): K14.0 - Glossitis Plan: Advised that this is likely related to his frequent alcohol consumption and may be due to some vitamin deficiency Will start him on Multivitamins QD for now (6) Vitamin D deficiency: Code(s): E55.9 - Vitamin D deficiency, unspecified Plan: He is also advised that his Vitamin D level was very low when recently checked and he should start taking OTC Vitamin D3 2000 units QD Plan Follow up in 3 months Medications: New multivitamin (Daily Multi-Vitamin tablet) 1 tab PO DAILY 90 tabs 3RF 90 days Refilled amlodipine 5 mg PO DAILY 90 tabs 1RF I10 - Essential (primary) hypertension Coding Level of Care Code Est Pt Level 4 (00062) Diagnoses Essential hypertension I10 Pure hypercholesterolemia E78.00 Hiatal hernia K44.9 Alcohol abuse F10.10 Glossitis K14.0 Vitamin D deficiency E55.9
[2023-10-25 12:59] VITALS: BP 134/86; PULSE 101; O2SAT 98; BMI 20.9
== END 2023-10-25 13:52 | disposition home or self-care (01) ==
PROVIDERS: PCP Internal Medicine; Visit Provider Internal Medicine
DX: I10 Essential (primary) hypertension (principal); E78.00 Pure hypercholesterolemia, unspecified; K44.9 Diaphragmatic hernia without obstruction or gangrene; F10.10 Alcohol abuse, uncomplicated; K14.0 Glossitis; E55.9 Vitamin D deficiency, unspecified
CPT/HCPCS: 99214

== ENCOUNTER 2024-03-01 09:37 | Outpatient (AMB) | payer MEDICARE, MEDICAID, SELFPAY ==
[2024-03-01 09:39] VITALS: BP 126/90; PULSE 119; O2SAT 98; BMI 20.3
--- NOTE | 2024-03-01 09:39 | MHC.PC.OV ---
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 Accompanied by: Self / Same As Patient Allergies Sulfa (Sulfonamide Antibiotics) Allergy (Unknown, Verified 03/01/24 10:35) RASH Medication List - Last Reconciled 03/01/24 by Jerry Kothari MD amlodipine 5 mg PO DAILY multivitamin (Daily Multi-Vitamin tablet) 1 tab PO DAILY 90 days omeprazole 20 mg PO DAILY 8 weeks Tobacco use date assessed: 03/01/24 Fall risk assessment: No Falls in past year Last assessed Fall Risk: 03/01/24 Dental Screening Dental Screen Date: 03/01/24 Did you have a dental visit in the last 12 months?: No Did you have a dental problem in the last 6 months where you did not have access to dental care?: No Was dental information given to patient?: Patient has dentist HPI 3mof\u HPI Details Patient comes in today for his follow up visit States that he feels okay He admits to still drinking about 5 to 6 beers a day He denies any headaches or dizziness Denies any chest pains, no SOB No nausea/vomiting, no abdominal pain No change in bowel habits noted He has no follow up labs ordered or done for this visit [facility] Medical History Vitamin D deficiency Pure hypercholesterolemia Hiatal hernia Alcohol abuse HTN (hypertension) High cholesterol Surgical History No significant past surgical history Family History Father Lung cancer Mother Cancer Other Substance abuse Social History Household Members: None Housing: Apartment Do you presently have visiting nurse or other home services: No Alcohol intake: current Alcohol intake frequency: a few times a week Alcohol type: beer, wine and hard liquor Patient Tobacco Use Status: Never used Tobacco e-Cigarette/Vaping Use: Never Used Second Hand Smoke Exposure: Yes service: No Current occupational status: employed Current occupation: maintenance Cognitive needs: No Hearing needs: No Vision needs: No Questionnaire PHQ-9 Over the last 2 weeks, how often have you been bothered by any of the following problems? 1. Little interest or pleasure in doing things: not at all 2. Feeling down, depressed, or hopeless: not at all 3. Trouble falling or staying asleep, or sleeping too much: not at all 4. Feeling tired or having little energy: not at all 5. Poor appetite or overeating: not at all 6. Feeling bad about yourself - or that you are a failure or have let yourself or your family down: not at all 7. Trouble concentrating on things, such as reading the newspaper or watching television: not at all 8. Moving or speaking so slowly that other people could have noticed. Or the opposite - being so fidgety or restless that you have been moving around a lot more than usual: not at all 9. Thoughts that you would be better off or of hurting yourself in some way: not at all Total score: 0 Depression Screening Interpretation: Negative Depression Screening Done: Yes 42514 - PHQ-9 Billing: Yes Source: Developed by Drs. Brandon Sheffield, Julia Velasquez, Heath Lerner and colleagues, with an educational taisha from [employer]. Thrive Questionnaire Date Thrive assessed: 03/01/24 I am a: Patient What is your living situation today?: I have a steady place to live Within the past 12 months, did the food you bought not last and you didn't have the money to get more?: Never true Within the past 12 months, did you worry whether your food would run out before you got money to buy more?: Never true Do you have trouble paying for medicines?: No Do you have trouble getting transportation to medical appointments?: No Do you have trouble paying your heating and electricity bill?: No Do you have trouble taking care of your child, family member or friend?: No Do you have trouble with day-to-day activities such as bathing, preparing meals, shopping, managing finances, etc.?: No Are you currently unemployed and looking for a job?: No Are you interested in more education?: No Please select the resources that you would like help with: None Currently or been in a relationship where the following occur: No concerns reported THRIVE Score: 0 AUDIT C Alcohol Use Questionnaire (AUDIT-C) 1. How often do you have a drink containing alcohol?: 2-4 times a month 2. How many drinks containing alcohol do you have on a typical day when you are drinking?: 3 or 4 3. How often do you have six or more drinks on one occasion?: Less than monthly Total Score: 4 Score Reviewed/Action Taken: Yes (patient is again urged to cut back on his drinking and eventually quit) SHIRA-7 AMB Questionnaire SHIRA-7 Date SHIRA - 7 assessed: 03/01/24 Feeling nervous, anxious, or on edge: 0 = Not at all Not being able to stop or control worryin = Not at all Worrying too much about different things: 0 = Not at all Trouble relaxin = Not at all Being so restless that it is hard to sit still: 0 = Not at all Becoming easily annoyed or irritable: 0 = Not at all Feeling afraid as if something awful might happen: 0 = Not at all Total SHIRA-7 score (0-4 normal; 5-9 mild; 10-14 moderate; 15-21 severe): 0 Source: Developed by Drs. Brandon Sheffield, Julia Velasquez, Heath Lerner and colleagues, with an educational taisha from [employer]. Review of Systems Const Denies chills, Reports difficulty sleeping, Denies fatigue, Denies fever(s) and Denies headache(s) ENT Denies dysphagia, Denies dizziness, Denies otalgia, Denies headache(s), Denies neck pain, Denies odynophagia and Denies sore throat Card Denies chest pain, Denies rapid heart rate, Denies irregular heart rhythm, Denies palpitations and Denies dyspnea Resp Denies cough, Denies dyspnea and Denies wheezing GI Denies abdominal pain, Denies constipation, Denies dysphagia, Denies heartburn, Denies diarrhea, Denies nausea, Denies odynophagia and Denies vomiting Denies difficulty urinating, Denies dysuria, Denies nocturia and Denies urinary frequency Musc Denies back pain, Denies arthralgias, Denies muscle weakness and Denies neck pain Skin/Breast Denies rash Neuro Denies dizziness, Denies headache(s) and Denies paresthesias Psych Denies anxiety Endo Denies fatigue and Denies palpitations Aller/Immun Denies wheezing Physical exam (Primary Care) Vital Signs: Last Vital Signs Pulse 119 H 03/01/24 09:39 BP 126/90 H 03/01/24 09:39 Pulse Ox 98 03/01/24 09:39 Oxygen Delivery Method Room Air 03/01/24 09:39 BMI result Body Mass Index 20.3 Tobacco/Smoking Status: Tobacco use Status Tobacco use date assessed 03/01/24 03/01/24 09:44 Patient Tobacco Use Status Never used Tobacco 03/01/24 09:44 e-Cigarette/Vaping Use Never Used 03/01/24 09:44 PHQ-9: PHQ-9 Score PHQ-9: Total score 0 03/01/24 10:36 Depression Screening Interpretation: Negative Thrive Assessment: Date of Thrive Assessment Date Thrive assessed 03/01/24 03/01/24 09:44 Currently or been in a relationship where the following occur: No concerns reported Const General: no acute distress and alert HENMT Throat: Yes posterior oropharynx normal and Yes tonsils normal (no TP congestion) Neck Neck: Yes no lymphadenopathy and Yes supple Thyroid: Thyroid normal Resp Auscultation: clear to auscultation bilaterally, no rales and no wheezes Cardio Rate: regular rate Rhythm: regular rhythm Heart sounds: no murmurs GI Palpation (GI): Soft to palpation and nontender Auscultation: normal bowel sounds General: Yes no CVA tenderness Back/Spine/Pelvis Back: no CVA tenderness Thoracic/Lumbar Spine: No lumbar spinal tenderness Skin Rashes: no rashes Extrem General: Yes no clubbing, cyanosis or edema Office Procedures Flu Questionnaire Does the patient have a severe egg allergy?: No Immunizations Fluarix Triv [id number] (PF) 45 mcg (15 mcg x 3)/0.5 mL IM syringe Performing Provider: Jerry Kothari MD Per[facility] [place] [facility] Documented (not given) by: SHAMA Rosales on 03/01/24 09:46 Reason Not Given: Patient Refused Coding Level of Care Code Est Pt Level 4 (23918) Diagnoses Essential hypertension I10 Pure hypercholesterolemia E78.00 Hiatal hernia K44.9 Elevated LFTs R79.89 Alcohol abuse F10.10 Vitamin D deficiency E55.9 Assessment & Plan Assessment & Plan (1) Essential hypertension: Code(s): I10 - Essential (primary) hypertension Category: Medical Plan: Reinforced low sodium diet - goal is systolic BP of at least 120 to 130 mm or less Patient has stated that his blood pressure usually tends to run higher whenever he goes into a doctor's office and he has been attributing this to possible anxiety or white coat syndrome - have advised him that his blood pressure today is actually better compared to his previous readings Continue Amlodipine 5 mg QD for now Will have patient continue monitoring his blood pressure regularly if he can (2) Pure hypercholesterolemia: Code(s): E78.00 - Pure hypercholesterolemia, unspecified Category: Medical Plan: His cholesterol levels were within the normal range when they were last checked in July 2022 - LDL cholesterol was at 122 mg/dl, total cholesterol was up at 219 mg/dl but this was mostly due to his high HDL cholesterol, which was at 76 mg/dl back then Reinforced low cholesterol diet Will have patient recheck his labs and fasting lipids in 4 months for follow up (3) Hiatal hernia: Comment: EGD done on 11/08/2020 revealed normal findings, with only (+) hiatal hernia Code(s): K44.9 - Diaphragmatic hernia without obstruction or gangrene Category: Medical Plan: Reinforced dietary restrictions Continue Omeprazole 20 mg QD (4) Elevated LFTs: Code(s): R79.89 - Other specified abnormal findings of blood chemistry Category: Medical Plan: His LFTs were significantly elevated on his labs back in July 2022, likely due to the effects of alcohol as he admits to drinking about 5 beers a day regularly Have advised patient to at least try cutting back on his beer to just 1 to 2 beers a day if quitting completely is not an option for him Will recheck his LFTs in 4 months for follow up Will consider sending him for abdominal US for further evaluation if his LFTs remain significantly elevated at his next follow up appointment (5) Alcohol abuse: Code(s): F10.10 - Alcohol abuse, uncomplicated Category: Social Hx Plan: Patient is advised again on quitting alcohol completely and maintaining sobriety but if this is not an option at this time, to at least cut back on his daily beer count Have offered to refer him to AA if he agrees to it - patient states that he will call if he needs any help (6) Vitamin D deficiency: Code(s): E55.9 - Vitamin D deficiency, unspecified Category: Medical Plan: Continue OTC Vitamin D3 2000 units QD Plan Follow up in 3 months Orders: Orders Influenza [id number] Immunization Today Z23 - Encounter for immunization Complete Blood Count Auto Diff 3 Months D64.9 - Anemia, unspecified Comprehensive [place]. Panel Fast 3 Months E78.00 - Pure hypercholesterolemia, unspecified Vitamin D 25-OH Total 3 Months E55.9 - Vitamin D deficiency, unspecified Vitamin B12 and Folate 3 Months E53.8 - Deficiency of other specified B group vitamins UA CC w/rflx Micro + Cult 3 Months R30.0 - Dysuria Vitamin B1 3 Months F10.10 - Alcohol abuse, uncomplicated Lipid Panel 3 Months E78.00 - Pure hypercholesterolemia, unspecified TSH reflex Free T4 3 Months E78.00 - Pure hypercholesterolemia, unspecified
== END 2024-03-01 10:40 | disposition home or self-care (01) ==
PROVIDERS: PCP Internal Medicine; Visit Provider Internal Medicine
DX: I10 Essential (primary) hypertension (principal); E78.00 Pure hypercholesterolemia, unspecified; K44.9 Diaphragmatic hernia without obstruction or gangrene; R79.89 Other specified abnormal findings of blood chemistry; F10.10 Alcohol abuse, uncomplicated; E55.9 Vitamin D deficiency, unspecified; Z23 Encounter for immunization

== ENCOUNTER → 2024-03-01 09:37 | Outpatient (BNVA) | payer SELFPAY | PROVIDERS: PCP Internal Medicine; Visit Provider Internal Medicine | DX: I10 Essential (primary) hypertension (principal); E78.00 Pure hypercholesterolemia, unspecified; K44.9 Diaphragmatic hernia without obstruction or gangrene; R79.89 Other specified abnormal findings of blood chemistry; F10.10 Alcohol abuse, uncomplicated; E55.9 Vitamin D deficiency, unspecified; Z79.899 Other long term (current) drug therapy; Z28.21 Immunization not carried out because of patient refusal | CPT/HCPCS: 90471; 96127; 99212 ==